=== PATIENT | male | born 1970 | race Two or more races ===

== ENCOUNTER 2020-03-04 10:41 | Outpatient (REF) | payer OTHER, SELFPAY ==
[2020-03-04 12:00] LABS: MANUAL DIFF FLAG NO
[2020-03-04 12:11] LABS: Basophils Percent Auto 0.5 % (0-2); Eosinophils Percent Auto 0.7 % (0-4); Hematocrit 43.6 % (42-52); Hemoglobin 14.7 g/dl (14.0-18.0); Imm Gran Abs Auto 0.03 X10*3/uL (0.00-0.03); Imm Gran Pct Auto 0.5 % (0.0-0.4); Lymphocytes Absolute Auto 2.1 X10*3/uL (1.2-4.9); Lymphocytes Percent Auto 37.9 % (20-40); Mean Corpuscular HGB Conc 33.7 g/dl (31.0-36.0); Mean Corpuscular Hemoglobin 32.7 pg (27.0-33.0); Mean Corpuscular Volume 97.1 fL (80-98); Mean Platelet Volume 9.4 fL (9.4-12.4); Monocytes Absolute Auto 0.5 X10*3/uL (0.1-1.2); Monocytes Percent Auto 9.5 % (2-11); Neutrophils Absolute Auto 2.9 X10*3/uL (2.0-8.3); Neutrophils Percent Auto 50.9 % (45-73); Platelet Count 323 X10*3/uL (160-400); Red Blood Count 4.49 X10*6/uL (4.60-5.80); Red Cell Distribution Width 12.1 % (11.0-16.0); White Blood Count 5.6 X10*3/uL (4.8-10.8)
[2020-03-04 12:41] LABS: Alanine Aminotransferase 24 U/L (0-40); Albumin Level 4.6 g/dL (3.5-5.0); Alkaline Phosphatase 96 U/L (39-117); Anion Gap 10 (12-20); Aspartate Amino Transferase 25 U/L (5-37); Bilirubin Total 0.4 mg/dL (0.0-1.0); Blood Urea Nitrogen 22 mg/dL (9-16); Calcium 9.8 mg/dL (8.4-10.2); Carbon Dioxide 29 mmol/L (22-29); Chloride 104 mmol/L (96-108); Estimated Glomerular Filt Rate > 60; Glucose Random 96 mg/dL (60-115); Potassium 4.7 mmol/l (3.3-5.1); Sodium 138 mmol/L (135-145); Total Protein 7.3 g/dL (6.5-8.0)
[2020-03-04 13:40] LABS: CT PCR NOT DETECTED (Not Detect.); NG PCR NOT DETECTED (Not Detect.)
[2020-03-05 05:14] LABS: Syphilis Screen Reactive (Nonreactive)
[2020-03-06 13:06] LABS: HIV RNA PCR Qn Copies <20 NOT DETECTED copies/mL (NOT DETECTED); HIV RNA PCR Qn Log Copies <1.30 NOT DETECTED (NOT DETECTED)
[2020-03-11 08:15] LABS: RPR Quantitative Reactive 1:4 (Nonreactive)
[2020-03-11 08:24] LABS: T.Pallidum Particle Agg Test Reactive (Nonreactive)
== END 2020-03-04 10:42 | disposition home or self-care (01) ==
LOC: HO.LAB 10:41
PROVIDERS: Absent Provider Internal Medicine; PCP Nurse Practitioner Primary Care; Referring Provider Nurse Practitioner Primary Care; Visit Provider Surgery
DX: K40.90 Unilateral inguinal hernia, without obstruction or gangrene, not specified as recurrent (principal); B20 Human immunodeficiency virus [HIV] disease
CPT/HCPCS: 36415; 80053; 85025; 86592; 86780; 87491; 87536; 87591

== ENCOUNTER 2020-03-20 07:58 | Day surgery (SDC) | payer OTHER, SELFPAY ==
--- NOTE | 2020-03-19 12:14 | HO.ANESPROP2 ---
Documented by User: Jolynn Gayle 03/19/20 12:16 HPI - Anesthesia Eval Consult details Narrative: 49yo M for R inguinal hernia repair PMFSH Past Medical History Medical History HIV (human immunodeficiency virus infection) Family History Family History Maternal Grandfather History of colon cancer Surgical History Surgical History History of spinal surgery (~2015) Social History Social History Alcohol intake: current Alcohol intake frequency: holidays/special occasions only Smoking Status: Former smoker Smoking Quit Date: 20 YEAR Substance Use Frequency: Daily Advance Directives: No Meds Allergies Allergy/AdvReac Type Severity Reaction Status Date / Time No Known Allergies Allergy Verified 03/04/20 11:02 Home Medications Medication Instructions Recorded Confirmed Type baclofen 10 mg tablet 20 mg PO TID 03/04/20 History bictegravir 50 mg-emtricitabine 1 tab PO DAILY 03/04/20 History 200 mg-tenofovir alafenam 25 mg tablet multivit,Ca,min-iron 8 mg-folic tab PO 03/04/20 History acid 200 mcg-lycopene 600 mcg tablet naloxone 4 mg/actuation nasal spray 4 mg INTRANASAL Q3M PRN 03/04/20 History quetiapine 100 mg tablet 100 mg PO DAILY 03/04/20 History varicella-zoster gE vac,2 of 2 50 mcg IM 03/04/20 History mcg IM suspension Exam Exam Date and Time: March 19, 2020 1214 Pertinent Lab Results Pertinent Lab Results: Laboratory Tests 03/04/20 03/04/20 11:35 11:35 WBC 5.6 Hgb 14.7 Hct 43.6 Plt Count 323 Sodium 138 Potassium 4.7 Chloride 104 BUN 22 H Creatinine 0.94 Assessment and Plan Assessment Anesthesia Assessment: Chart Reviewed Documented by User: Brittney Almanza 03/20/20 08:57 PMFSH Past Medical History Medical History HIV (human immunodeficiency virus infection) Family History Family History Maternal Grandfather History of colon cancer Surgical History Surgical History History of spinal surgery (~2016) Social History Social History Alcohol intake: current Alcohol intake frequency: holidays/special occasions only Smoking Status: Former smoker Smoking Quit Date: 20 YEAR Substance Use Frequency: Daily Advance Directives: No Meds Allergies Allergy/AdvReac Type Severity Reaction Status Date / Time No Known Allergies Allergy Verified 03/04/20 11:02 Home Medications Medication Instructions Recorded Confirmed Type baclofen 10 mg tablet 20 mg PO TID 03/04/20 History bictegravir 50 mg-emtricitabine 1 tab PO DAILY 03/04/20 History 200 mg-tenofovir alafenam 25 mg tablet multivit,Ca,min-iron 8 mg-folic tab PO 03/04/20 History acid 200 mcg-lycopene 600 mcg tablet naloxone 4 mg/actuation nasal spray 4 mg INTRANASAL Q3M PRN 03/04/20 History quetiapine 100 mg tablet 100 mg PO DAILY 03/04/20 History varicella-zoster gE vac,2 of 2 50 mcg IM 03/04/20 History mcg IM suspension Exam Airway Mallampati Class: II TM Dist: >3cm Neck ROM: Full Heart: RRR Lungs: CTA
[2020-03-20] VITALS (8 sets, daily range): BP systolic 106–123; BP diastolic 67–90; PULSE 56–74; RESP 16–20; TEMP 36.1–37; O2SAT 99–100; BMI 26.6
--- NOTE | 2020-03-20 08:58 | HO.ANESPROP2 ---
[facility] Past Medical History Medical History HIV (human immunodeficiency virus infection) Family History Family History Maternal Grandfather History of colon cancer Surgical History Surgical History History of spinal surgery (~2016) Social History Social History Alcohol intake: current Alcohol intake frequency: holidays/special occasions only Smoking Status: Former smoker Smoking Quit Date: 20 YEAR Substance Use Frequency: Daily Advance Directives: No Meds Allergies Allergy/AdvReac Type Severity Reaction Status Date / Time No Known Allergies Allergy Verified 03/04/20 11:02 Home Medications Medication Instructions Recorded Confirmed Type baclofen 10 mg tablet 20 mg PO TID 03/04/20 History bictegravir 50 mg-emtricitabine 1 tab PO DAILY 03/04/20 History 200 mg-tenofovir alafenam 25 mg tablet multivit,Ca,min-iron 8 mg-folic tab PO 03/04/20 History acid 200 mcg-lycopene 600 mcg tablet naloxone 4 mg/actuation nasal spray 4 mg INTRANASAL Q3M PRN 03/04/20 History quetiapine 100 mg tablet 100 mg PO DAILY 03/04/20 History varicella-zoster gE vac,2 of 2 50 mcg IM 03/04/20 History mcg IM suspension Exam Exam Date and Time: March 20, 2020 0858 Height,Weight and Vital Signs: Height 5 ft 9 in Weight 81.647 kg Last Vital Signs Temp 98.6 F 03/20/20 08:46 Pulse 65 03/20/20 08:46 Resp 20 03/20/20 08:46 BP 121/67 03/20/20 08:46 Pulse Ox 99 03/20/20 08:46 Assessment and Plan Assessment Anesthesia Assessment: Chart Reviewed Final Anesthetic Review NPO: Yes ASA Class: II Final Preanesthetic Review: No Changes in Pt Med Stat, Meds/Allgs Chart Reviewed and Consent Obtained/Reviewed Patient Risk: Low Procedure Risk: Low Anesthetic Plan Anesthetic Plan: GA Disposition: Standard PACU
[2020-03-20] MEDS: Lactated Ringers 1,000 ML 100 ML IVCONT (09:15)
[2020-03-20] MEDS: ceFAZolin Sodium/Dextrose,Iso 2 GM/50 ML PIGGYBACK IV (09:16)
--- NOTE | 2020-03-20 09:17 | MHC.SHP ---
Pre-Procedural Eval Section A The patient is an INPATIENT: No Changes since office visit: Yes Patient answered all questions; No Cold of Flu in the past 2 weeks, No New Medical Problems and No Changes in Medication The History & Physical has been completed within 30 days and I have reviewed it.: Yes Section B Chief Complaint: Right Inguinal hernia Allergies: Allergies Allergy/AdvReac Type Severity Reaction Status Date / Time No Known Allergies Allergy Verified 03/04/20 11:02 Plan Diagnosis/Plan: Unchanged Patient has been examined and remains a candidate for the planned procedure
--- NOTE | 2020-03-20 10:21 | PM.OP ---
Brief Operative Note Date of procedure: 03/20/20 Pre-op diagnosis: Right inguinal hernia Post-op diagnosis: same Procedure: Repair of right inguinal hernia with mesh Implants: Bard Ventralex 8 cm mesh preparitoneal and flat polyprop overlay mesh Surgeon: Tavares Judge MD Anesthesia: GLMA Flaring Machine Operator: Marci Dumont Estimated blood loss (mL): 5 Pathology: none sent Condition: stable Disposition: PACU
--- NOTE | 2020-03-20 10:30 | W.PM.OPN ---
Operative Note Operative Note Narrative: Date of procedure: 03/20/20 Pre-op diagnosis: Right inguinal hernia Post-op diagnosis: same Procedure: Repair of right inguinal hernia with mesh Indications for procedure: 49-year-old male presenting with a lump in the right groin which increases in size with Valsalva maneuvers. he reports increased pain in the right groin especially lifting and straining. Operative findings: Patient was found to have a indirect and direct inguinal hernia. This was repaired with a combination of a Ventralex 8 cm mesh placed in the preperitoneal space followed by a overlay of polypropylene mesh placed within the inguinal canal Operative details: The patient was brought to the OR and placed in a supine position. After administering general anesthesia the patient's abdomen was prepped with ChloraPrep and draped in a sterile fashion. A surgical time-out was called and the consent confirmed. Patient had received preoperative antibiotics and Venodyne boots were in place. Local anesthesia consisting of 0.75% Sensorcaine was then infiltrated just above the inguinal ligament within the skin and subcutaneous tissue. Incision was then made over the inguinal ligament with the scalpel carried out through subcutaneous tissue past Mary's fascia and up to the external oblique aponeurosis. The aponeurosis was then incised along the fibers and opened further with Metzenbaum scissors. The spermatic cord was then dissected free from the inguinal canal and retracted using a Emi drain. Fibers of the cremasteric muscle were then and a hernia sac not identified within the spermatic cord. Slightly medial to this and attached to the spermatic cord was a hernia sac separate from the cremasteric contents. This was dissected free from the cord down to the internal ring and reduced into the abdominal cavity. A separate weakness was noted in the floor of the inguinal canal suggestive of a direct hernia as well. At this point a 8 cm Ventralex mesh was obtained. This was placed into the preperitoneal space and secured to the fascial edges using interrupted 0 Polysorb sutures. It should be noted this was placed at the internal ring. An overlay mesh was then created using a flat sheet of polypropylene mesh. This was trimmed to size and secured to the pubic tubercle conjoined tendon and shelving edge of the inguinal ligament. A slit was made in the mesh to allow passage of the spermatic cord at the internal ring. This was then secured to the shelving edge of the inguinal ligament. The internal ring was allowed to past the tip of an index finger. Wounds were then irrigated with saline solution and suctioned dry. External oblique aponeurosis was then reapproximated using a running 2 0 Polysorb suture. Mary's fascia and dermis reapproximated using interrupted 3 0 Polysorb sutures. Skin was then closed using a running subcuticular 4 0 Polysorb suture. Steri-Strips 2 x 2 gauze and Tegaderm were then applied. The patient tolerated the procedure well. Sponge , instrument, and needle counts were reported as correct. The patient was transferred to PACU in stable condition. Implants: Bard Ventralex 8 cm mesh preparitoneal and flat polyprop overlay mesh Surgeon: Tavares Judge MD Anesthesia: GLMA Police Magistrate: Marci Dumont Estimated blood loss (mL): 5 Pathology: none sent Condition: stable Disposition: PACU
[2020-03-20] MEDS: Ketorolac Tromethamine 15 MG/ML VIAL IVPUSH (11:01)
[2020-03-20] MEDS: Acetaminophen 325 MG TABLET 650 MG PO (11:04)
[2020-03-20] MEDS: oxyCODONE HCl Immed Release 5 MG TABLET 10 MG PO (11:05)
--- NOTE | 2020-03-20 12:01 | HO.POSTANES ---
Post Anesthesia Evaluation Post Anesthesia Evaluation Vital Signs: Vital Signs Temp Pulse Resp BP Pulse Ox 03/20/20 11:32 97 F 56 16 118/84 100 03/20/20 11:15 60 16 123/82 99 03/20/20 11:00 63 16 112/77 99 03/20/20 10:45 63 16 114/75 100 03/20/20 10:40 63 16 109/76 100 03/20/20 10:35 66 16 113/76 99 03/20/20 10:30 97 F 74 16 106/90 H 99 03/20/20 08:46 98.6 F 65 20 121/67 99 Anesthesia: General LMA Mental Status: Awake Pain Control: Satisfactory Nausea/Vomiting: None Hydration: Adequate Anesthesia-Related Issues: No Anes. Related Issues
--- NOTE | 2020-03-20 13:10 | P.BOP_ITS ---
Brief Operative Note Date of procedure: 03/20/20 Pre-op diagnosis: Invasive lobular carcinoma left breast Post-op diagnosis: same Procedure: Left breast lumpectomy with needle localization, left sentinel node biopsy Implants: none Surgeon: Tavares Judge MD Anesthesia: GLMA Paper Roll Machine Operator: Marci Dumont Estimated blood loss (mL): 20 Pathology: other (left breast mass, sentinel nodes) Condition: stable Disposition: PACU
== END 2020-03-20 12:30 | disposition home or self-care (01) ==
PROVIDERS: Visit Provider Surgery
PROC: (CPT 49505; principal; 2020-03-20 09:30)
DX: K40.90 Unilateral inguinal hernia, without obstruction or gangrene, not specified as recurrent (principal); B20 Human immunodeficiency virus [HIV] disease; Z79.899 Other long term (current) drug therapy; Z87.891 Personal history of nicotine dependence
CPT/HCPCS: 49505; C1781; J0690; J1885; J2250; J2405; J3010

== ENCOUNTER → 2020-03-28 09:44 | Outpatient (BNVA) | payer OTHER, SELFPAY | PROVIDERS: Visit Provider Surgery | DX: Z76.89 Persons encountering health services in other specified circumstances (principal) ==

== ENCOUNTER → 2020-05-02 09:54 | Outpatient (BNVA) | payer OTHER, SELFPAY | PROVIDERS: PCP Nurse Practitioner Primary Care; Visit Provider Surgery | DX: Z76.89 Persons encountering health services in other specified circumstances (principal) ==

== ENCOUNTER → 2021-10-22 15:42 | Outpatient (BNVA) | payer OTHER, SELFPAY | PROVIDERS: PCP Nurse Practitioner Primary Care; Referring Provider Surgery; Visit Provider Surgery | DX: Z13.89 Encounter for screening for other disorder (principal) ==

== ENCOUNTER 2021-10-28 13:41 | Outpatient (REF) | payer OTHER, SELFPAY ==
--- NOTE | ~2021-10-28 | US_ITS ---
EXAMINATION: US ABDOMEN LIMITED CLINICAL INFORMATION: History of right hernia repair. COMPARISON: None TECHNIQUE: Real-time imaging of the bilateral hernias. FINDINGS: Imaging through the right groin reveals no visible hernia. There is a mesh within the right groin from previous hernia repair. There is no mass or fluid collection in the left groin. No evidence of hernia. US/US abdomen limited IMPRESSION: No evidence of hernia in either inguinal region. There is evidence of mesh in the right inguinal region from previous hernia repair.
== END 2021-10-28 13:42 | disposition home or self-care (01) ==
LOC: HO.HMGCX 13:41
PROVIDERS: PCP Nurse Practitioner Primary Care; Visit Provider Nurse Practitioner Primary Care
DX: K40.90 Unilateral inguinal hernia, without obstruction or gangrene, not specified as recurrent (principal)
CPT/HCPCS: 76705

== ENCOUNTER 2021-11-13 09:17 | Outpatient (REF) | payer OTHER, SELFPAY ==
--- NOTE | ~2021-11-13 | CT_ITS ---
EXAMINATION: CT ABDOMEN AND PELVIS WITHOUT CONTRAST CLINICAL INFORMATION: Unilateral inguinal hernia COMPARISON: Previous limited abdominal ultrasound 10/28/2021 TECHNIQUE: Multidetector volumetric imaging was performed from the superior aspect of the liver through the pubic symphysis. Sagittal and coronal reformatted images were obtained on the technologist's workstation. This CT examination was performed using dose optimization techniques as appropriate, variously including the following: *Automated exposure control *Adjustment of mA and/or kV according to patient size (this includes techniques or standardized protocols for targeted exams where dose is matched to indication/reason for exam; i.e. extremities or head) *Use of iterative reconstruction technique DLP: 458 mGy-cm FINDINGS: LUNG BASES: The visualized lung bases are unremarkable. LIVER, GALLBLADDER, AND BILIARY TREE: The liver is normal in size, shape, and attenuation. No focal hepatic lesion or biliary ductal dilatation is present. The gallbladder is unremarkable with no evidence of radiopaque gallstones, gallbladder wall thickening, or obvious pericholecystic inflammatory changes. PANCREAS: Unremarkable. SPLEEN: Unremarkable. ADRENAL GLANDS: Unremarkable. KIDNEYS AND URETERS: The kidneys are normal in size, shape, and attenuation. No hydronephrosis, hydroureter, or calculi seen. No perinephric stranding. BLADDER: Unremarkable. GASTROINTESTINAL TRACT: The small and large bowel are unremarkable. The appendix is unremarkable. ABDOMINAL WALL: There is postsurgical change in the right inguinal region. No fluid collection or right inguinal hernia is seen. There is a very small left inguinal hernia containing fat. LYMPH NODES: Normal. VASCULAR: Unremarkable. PELVIC VISCERA: Unremarkable. OSSEOUS STRUCTURES: Unremarkable. CT/CT abdomen pelvis wo con IMPRESSION: Postsurgical changes to the right inguinal region. No right inguinal hernia seen. Fleischner guidelines were followed.
[2021-11-13] MEDS: Barium Sulfate Oral (Vanilla) 450 ML ORAL.SUSP 900 ML PO (11:58)
== END 2021-11-13 09:18 | disposition home or self-care (01) ==
LOC: HO.CT 09:17
PROVIDERS: Visit Provider Surgery
DX: K40.90 Unilateral inguinal hernia, without obstruction or gangrene, not specified as recurrent (principal)
CPT/HCPCS: 74176

== ENCOUNTER 2021-12-23 05:51 | Day surgery (SDC) | payer OTHER, SELFPAY ==
[2021-12-17 15:27] VITALS: BMI 26.1
--- NOTE | 2021-12-22 08:43 | HO.ANESPROP2 ---
Documented by User: Jolynn Gayle NP 12/22/21 08:51 HPI - Anesthesia Eval Consult details Narrative: 51yo M for Left Hernia Repair Inguinal with mesh s/p R side 02/2020 with GA-LMA 5 PMFSH Active Problems Active Problems: All Active Problems (Updated 11/20/21 @ 13:03 by Tavares Judge MD) Right inguinal hernia (Acute) Left inguinal hernia (Acute) Past Medical History Medical History (Updated 11/20/21 @ 13:03 by Tavares Judge MD) HIV (human immunodeficiency virus infection) Family History Family History Maternal Grandfather History of colon cancer Surgical History Surgical History (Updated 12/17/21 @ 15:17 by Maxine Singh RN) History of spinal surgery (~2015) Hx of right inguinal hernia repair Social History Social History Are you a primary healthcare financial analyst to a significant other at home: No Do you presently have visiting nurse or other home services: No Alcohol intake: current Alcohol intake frequency: a few times a month Patient Tobacco Use Status: Former Tobacco user Quit Date: 20 yrs ago Tobacco use type: Cigarette Use of substances other than those prescribed or required for medical reasons: Yes Substance Use Frequency: Daily Have you been hit, kicked, punched, or otherwise hurt by someone within the past year? If so, by whom?: No Are you DNR?: No Advance Directives: No Advance Directives Information Provided: Yes Advance Directives on File: No Recently lost weight without trying: No Eating poorly because of decreased appetite: No Nutrition Risks: No Nutritional Risk Meds Allergies Allergy/AdvReac Type Severity Reaction Status Date / Time No Known Allergies Allergy Verified 12/17/21 15:17 Home Medications Medication Instructions Recorded Confirmed Last Taken Type baclofen 10 mg tablet 20 mg PO TID 03/04/20 12/17/21 Unknown History bictegravir 50 mg-emtricitabine 1 tab PO DAILY 03/04/20 12/17/21 Unknown History 200 mg-tenofovir alafenam 25 mg tablet multivit,Ca,min-iron 8 mg-folic tab PO 03/04/20 03/28/20 Unknown History acid 200 mcg-lycopene 600 mcg tablet (Centrum Ultra Men's) naloxone 4 mg/actuation nasal 4 mg intranasal Q3M PRN Opiate 03/04/20 12/17/21 Unknown History spray (Narcan) Reversal Exam Exam Date and Time: December 22, 2021 0843 Height,Weight and Vital Signs: Height 5 ft 10 in Weight 82.554 kg Documented by User: Farhan Juarez MD 12/23/21 07:21 [facility] Past Medical History Medical History (Updated 11/20/21 @ 13:03 by Tavares Judge MD) HIV (human immunodeficiency virus infection) Functional capacity: wheelchair bound Family History Family History Maternal Grandfather History of colon cancer Family history of problems with anesthesia: No Surgical History Surgical History (Updated 12/17/21 @ 15:17 by Maxine Singh RN) History of spinal surgery (~2015) Hx of right inguinal hernia repair History of Problems with Anesthesia: No Social History Social History Are you a primary healthcare financial analyst to a significant other at home: No Do you presently have visiting nurse or other home services: No Alcohol intake: current Alcohol intake frequency: a few times a month Patient Tobacco Use Status: Former Tobacco user Quit Date: 20 yrs ago Tobacco use type: Cigarette Use of substances other than those prescribed or required for medical reasons: Yes Substance Use Frequency: Daily Have you been hit, kicked, punched, or otherwise hurt by someone within the past year? If so, by whom?: No Are you DNR?: No Advance Directives: No Advance Directives Information Provided: Yes Advance Directives on File: No Recently lost weight without trying: No Eating poorly because of decreased appetite: No Nutrition Risks: No Nutritional Risk Meds Allergies Allergy/AdvReac Type Severity Reaction Status Date / Time No Known Allergies Allergy Verified 12/17/21 15:17 Home Medications Medication Instructions Recorded Confirmed Last Taken Type baclofen 10 mg tablet 20 mg PO TID 03/04/20 12/17/21 Unknown History bictegravir 50 mg-emtricitabine 1 tab PO DAILY 03/04/20 12/17/21 Unknown History 200 mg-tenofovir alafenam 25 mg tablet multivit,Ca,min-iron 8 mg-folic tab PO 03/04/20 03/28/20 Unknown History acid 200 mcg-lycopene 600 mcg tablet (Centrum Ultra Men's) naloxone 4 mg/actuation nasal 4 mg intranasal Q3M PRN Opiate 03/04/20 12/17/21 Unknown History spray (Narcan) Reversal Exam Airway Mallampati Class: II TM Dist: >3cm Neck ROM: Full Loose/Missing/Broken Teeth: No Heart: rrr Lungs: clear Assessment and Plan Final Anesthetic Review Family History of Problems with Anesthesia: No History of Problems with Anesthesia: No NPO: Yes ASA Class: II Final Preanesthetic Review: No Changes in Pt Med Stat, Meds/Allgs Chart Reviewed, Consent Obtained/Reviewed and Anes Risks/Benef Reviewed Patient Risk: Intermediate Procedure Risk: Low Anesthetic Plan Anesthetic Plan: GA Disposition: Standard PACU
[2021-12-23] VITALS (8 sets, daily range): BP systolic 103–124; BP diastolic 47–81; PULSE 52–72; RESP 16–18; TEMP 36.4–36.8; O2SAT 98–100
[2021-12-23] MEDS: Lactated Ringers 1,000 ML 100 ML IVCONT (06:43)
[2021-12-23 06:44] LABS: Hematocrit 42.9 % (42.0-52.0); Hemoglobin 14.6 g/dl (14.0-18.0); Mean Corpuscular Hemoglobin 32.6 pg (27.0-33.0); Mean Corpuscular Volume 95.8 fL (80.0-98.0); Mean Platelet Volume 8.8 fL (9.4-12.4); Platelet Count 285 X10*3/uL (160-400); Red Blood Count 4.48 X10*6/uL (4.60-5.80); Red Cell Distribution Width 12.7 % (11.0-16.0); White Blood Count 5.9 X10*3/uL (4.8-10.8)
[2021-12-23 06:57] LABS: Anion Gap 12 (12-20); Blood Urea Nitrogen 12 mg/dL (9-16); Calcium 9.1 mg/dL (8.4-10.2); Carbon Dioxide 26 mmol/L (22-29); Chloride 107 mmol/L (96-108); Creatinine Clr Calc Pharmacy 90.9; Estimated Glomerular Filt Rate > 60; Glucose Fasting 90 mg/dL (60-99); Potassium 4.8 mmol/L (3.3-5.1); Sodium 140 mmol/L (135-145)
--- NOTE | 2021-12-23 07:08 | P.HPSUR_ITS ---
Pre-Procedural Eval Section A Date of Service: 12/23/21 The patient is an INPATIENT: No Changes since office visit: Yes Patient answered all questions; No Cold of Flu in the past 2 weeks, No New Medical Problems and No Changes in Medication The History & Physical has been completed within 30 days and I have reviewed it.: Yes Section B Chief Complaint: hernia Details of Present Illness: New pain in left groin with lump which increases with lifting and is causing pain. He also reports some pain on the right side as well but no lump. CT confirms left inguinal hernia. Relevant Family History (Specify if Yes): No Relevant Social History: None Present Medications: see Short Stay Collaborative assessment Medical History: No relevant PMH History of Previous Operations: Relevant previous surgery/procedure and date(s) (right inguinal hernia repair) Allergies: Allergies Allergy/AdvReac Type Severity Reaction Status Date / Time No Known Allergies Allergy Verified 12/17/21 15:17 Review of Systems Sugical H&P ROS: Negative: Constitution, Cardiovascular, Respiratory, Neurological, Psychiatric, Hem-Onc, Allergic/Immunologic, Gastrointestinal, Genitourinary, Musculoskeletal, Integumentary, Endocrine and Eyes/Ears/Nose/Throat Exam Surgical H&P Exam: Normal: HEENT, Normal: Heart, Normal: Lungs, Normal: Extremi ties, Normal: Skin and Normal: Neurological and Significant Findings: Abdomen (LIH reducible) Plan Diagnosis/Plan: Unchanged I have reviewed the history and physical and performed a pertinent physical examination on my patient. No changes have occurred unless specified.
--- NOTE | 2021-12-23 08:24 | W.PM.OPN ---
Operative Note Operative Note Date of Service: 12/23/21 Narrative: Preoperative diagnosis:Left inguinal hernia Postoperative diagnosis: same Procedure: repair of left inguinal hernia with mesh Surgeon: Tavares Judge MD Outside Barrel Lathe Operator: no physician Anesthesia: general LMA Indications for procedure: 51-year-old male patient with a previous history of a right inguinal hernia now presenting with a painful lump in the left groin consistent with a left inguinal hernia. CT abdomen and pelvis confirmed a fat containing left inguinal hernia. Operative findings: Small fat containing indirect left inguinal hernia Specimen: lipoma of the cord left Estimated blood loss: 2 mL Complications: none Procedure details: patient was brought to the OR placed in a supine position. After administering general anesthesia patient's abdomen was prepped with ChloraPrep and draped in a sterile fashion. A surgical time-out was called the consent confirmed. Patient received preoperative antibiotics and Venodyne boots were placed. Local anesthesia consisting of 0.5% Sensorcaine was infiltrated over the inguinal ligament. Incision was then made with a scalpel wide and carried down past subcutaneous tissue, Mary's fashion up to the external oblique aponeurosis. Additional local was infiltrated below the external oblique aponeurosis. This was then incised with a scalpel wide with the Metzenbaum scissors. The spermatic cord was then dissected free from the surrounding Inguinal canal. This was then retracted using a Emi drain. The floor of the inguinal canal was found to be intact without a direct hernia. Fibers of the cremasteric muscle were then in a small lipoma of the cord identified. This was dissected down to the internal ring and ligated with a 0 Polysorb suture. This was excised and sent to pathology as a specimen. Attention was then directed to the floor of the inguinal canal. Fibers of the internal oblique aponeurosis and transversalis aponeurosis were then incised with electrocautery the preperitoneal space entered. This was then widened with an open Ray-Flores sponge. A large PHS mesh was then obtained. The circular underlay was deployed into the preperitoneal space and the overlay secured to the pubic tubercle, conjoined tendon, and shelving edge of the inguinal ligament using a 0 Polysorb suture. A slit was made in the mesh at the internal ring and wrapped around the spermatic cord. This was then secured to the shelving edge using the 0 Polysorb suture. After assuring adequate hemostasis wounds were irrigated with saline solution suctioned dry. External oblique aponeurosis then closed using a running 2 0 Polysorb suture. 4.5 mL of Zenrelef was then infiltrated over the mesh. Additional 4 mL was infiltrated over the external oblique aponeurosis. Mary's fascia was then reapproximated interrupted 3-0 Polysorb sutures. Dermis was reapproximated using interrupted 3-0 Polysorb sutures. Skin was closed using a running subcuticular 4-0 Polysorb suture. Steri-Strips, 2 x 2 gauze and Tegaderm were then applied. The patient tolerated the procedure well. Sponge, instrument, and needle counts reported as correct. The patient was transferred to PACU in stable condition.
== END 2021-12-23 10:17 | disposition home or self-care (01) ==
PROVIDERS: Nurse Practitioner; Visit Provider Surgery
PROC: (CPT 49505; principal; 2021-12-23 07:30)
DX: K40.90 Unilateral inguinal hernia, without obstruction or gangrene, not specified as recurrent (principal); D17.6 Benign lipomatous neoplasm of spermatic cord; B20 Human immunodeficiency virus [HIV] disease; Z79.899 Other long term (current) drug therapy; Z98.890 Other specified postprocedural states
CPT/HCPCS: 49505; 36415; 80048; 85027; 88304; C1781; C9088; J0690; J1100; J2250; J2405; J2795; J3010

== ENCOUNTER 2023-01-28 17:57 | Outpatient (REF) | payer OTHER, SELFPAY | END 2023-01-28 17:58 | disposition home or self-care (01) | LOC: HO.LNP 17:57 | PROVIDERS: Visit Provider Emergency Medicine | DX: U07.1 COVID-19 (principal) | CPT/HCPCS: 87070 ==

== ENCOUNTER 2023-07-21 13:43 | Outpatient (REF) | payer OTHER, SELFPAY ==
--- NOTE | ~2023-07-21 | CT_ITS ---
EXAMINATION: CT ABDOMEN AND PELVIS WITH CONTRAST CLINICAL INFORMATION: Right inguinal pain; history of prior herniorrhaphy. COMPARISON: CT abdomen and pelvis dated 11/13/2021; abdominal ultrasound dated 10/28/2021. TECHNIQUE: Multidetector volumetric images were obtained from the superior aspect of the liver through the pubic symphysis following administration 85 mL of Omnipaque 350 intravenous contrast. Sagittal and coronal reformatted images were obtained on the technologist's workstation. Oral contrast: No This CT examination was performed using dose optimization techniques as appropriate, variously including the following: *Automated exposure control *Adjustment of mA and/or kV according to patient size (this includes techniques or standardized protocols for targeted exams where dose is matched to indication/reason for exam; i.e. extremities or head) *Use of iterative reconstruction technique DLP: 512 mGy-cm FINDINGS: LUNG BASES: The visualized lung bases are unremarkable. LIVER, GALLBLADDER, AND BILIARY TREE: The liver is normal in size, shape, and attenuation. No focal hepatic lesion or biliary ductal dilatation is present. The gallbladder is unremarkable with no evidence of radiopaque gallstones, gallbladder wall thickening, or obvious pericholecystic inflammatory changes. PANCREAS: Unremarkable. SPLEEN: Unremarkable. ADRENAL GLANDS: Unremarkable. KIDNEYS AND URETERS: The kidneys are normal in size, shape, and attenuation. No hydronephrosis, hydroureter, or calculi seen. No perinephric stranding. At the upper pole of the left kidney posteriorly (3:35), an 8 mm benign, simple cyst is seen. This is somewhat small for full characterization with CT and requires no imaging follow-up. BLADDER: Unremarkable. GASTROINTESTINAL TRACT: There is a large colonic stool burden. No obstruction, free intraperitoneal air or abscess is seen. There is no focal bowel wall thickening. The vermiform appendix is unremarkable. ABDOMINAL WALL: There are very small fat-containing umbilical and left inguinal hernias. LYMPH NODES: Normal. VASCULAR: Unremarkable. PELVIC VISCERA: The prostate and seminal vesicles are unremarkable. OSSEOUS STRUCTURES: There is mild to moderate degenerative disc disease at L5-S1, with vacuum disc phenomenon. There is multi-level moderate to severe lower thoracic endplate arthropathy. No acute or aggressive osseous finding is noted. CT/CT abdomen pelvis w IV con IMPRESSION: 1. There is a large colonic stool burden, suggesting possible constipation. No obstruction, free intraperitoneal air or abscess is seen. There is no appendicitis or diverticulitis. 2. No right inguinal hernia defect, mass, lymphadenopathy or fluid collection is seen. There are very small fat-containing umbilical and left inguinal hernias. 3. There is degenerative disc disease at L5-S1. Fleischner guidelines were followed.
[2023-07-21] MEDS: Barium Sulfate Oral (Berry) 450 ML ORAL.SUSP 900 ML PO (16:08)
[2023-07-21] MEDS: iohexoL 350 MG/ML 100 ML INFUS..BTL 85 ML IV (16:19)
[2023-07-22 07:21] LABS: Creatinine POC 0.7 mg/dL (0.5-1.4); GFR POC > 60
== END 2023-07-21 13:44 | disposition home or self-care (01) ==
LOC: HO.CT 13:43
PROVIDERS: PCP Nurse Practitioner Primary Care; Visit Provider Surgery
DX: K40.90 Unilateral inguinal hernia, without obstruction or gangrene, not specified as recurrent (principal)
CPT/HCPCS: 74177; 82565; Q9967

== ENCOUNTER 2023-07-28 14:50 | Outpatient (AMB) | payer OTHER, SELFPAY ==
--- NOTE | 2023-07-28 14:56 | A.OFFVIS_ITS ---
Intake Vital Signs 07/28/23 15:08 Height 5 ft 10 in Weight 194 lb 8 oz BMI 27.9 BP 169/104 H Blood Pressure Location Lt brachial Position Sitting Pulse 92 Intake Visit Reasons: RIH, Ct-Scan results Intake Note: Patient is seen in office for CT scan results, following right inguinal hernia. 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 A fat containing small umbilical and left inguinal hernia was revealed however no recurrent hernia noted in the right side. Review of the CT revealed postoperative changes bilaterally with no definite hernia to my review. He denies any symptoms at the umbilical hernia site. He continues to have pain in bilateral groins. [facility] Medical History HIV (human immunodeficiency virus infection) Surgical History History of left inguinal hernia repair (12/23/21) Hx of right inguinal hernia repair History of spinal surgery (~2015) Family History Maternal Grandfather History of colon cancer Social History Are you a primary child care education coordinator to a significant other at home: No Do you presently have visiting nurse or other home services: No Alcohol intake: current Alcohol intake frequency: a few times a month Patient Tobacco Use Status: Former Tobacco user Quit Date: 20 yrs ago Tobacco use type: Cigarette Review of Systems Const All systems reviewed & are unremarkable except as noted in HPI and below Physical Exam Vital Signs: Last Vital Signs Pulse 92 07/28/23 15:08 BP 169/104 H 07/28/23 15:08 BMI result Body Mass Index 27.9 Const General: healthy appearing and no acute distress Nutritional Appearance: well nourished Orientation/consciousness: patient oriented x3 Limitations: no limitations Resp Effort & Inspection: normal respiratory effort GI Other: Exam deferred Neuro General: patient oriented x3 Assessment & Plan Assessment & Plan (1) Bilateral groin pain: Code(s): R10.31 - Right lower quadrant pain; R10.32 - Left lower quadrant pain Plan 52-year-old male patient who continues to have bilateral groin pain with no definite recurrent hernia. Postoperative changes are noted on the CT with no definite recurrent hernia. Previous examination also was negative for current hernias. I recommended evaluation by pain management clinic to see if there are other options pain relief. He expressed understanding and agrees with the plan. Orders: Referrals Pain Management Referral R10.31 - Right lower quadrant pain, R10.32 - Left lower quadrant pain Coding Level of Care Code Est Pt Level 3 (81594) Diagnoses Bilateral groin pain R10.31; R10.32
[2023-07-28 15:08] VITALS: BP 169/104; PULSE 92; BMI 27.9
== END 2023-07-28 15:23 | disposition home or self-care (01) ==
PROVIDERS: PCP Nurse Practitioner Primary Care; Visit Provider Surgery
DX: R10.31 Right lower quadrant pain (principal); R10.32 Left lower quadrant pain
CPT/HCPCS: 99213

== ENCOUNTER → 2023-07-28 14:50 | Outpatient (BNVA) | payer OTHER, SELFPAY | PROVIDERS: PCP Nurse Practitioner Primary Care; Visit Provider Surgery ==

== ENCOUNTER 2023-08-15 15:58 | Outpatient (REF) | payer OTHER, SELFPAY ==
[2023-08-15 17:34] LABS: MANUAL DIFF FLAG NO
[2023-08-15 17:51] LABS: Basophils Absolute Auto 0.1 X10*3/uL (0.0-0.2); Basophils Percent Auto 0.7 % (0-2); Eosinophils Absolute Auto 0.1 X10*3/uL (0.0-0.4); Eosinophils Percent Auto 1.9 % (0-4); Hematocrit 43.6 % (42.0-52.0); Imm Gran Abs Auto 0.05 X10*3/uL (0.00-0.03); Imm Gran Pct Auto 0.7 % (0.0-0.4); Lymphocytes Absolute Auto 3.1 X10*3/uL (1.2-4.9); Lymphocytes Percent Auto 42.1 % (20-40); Mean Corpuscular HGB Conc 34.4 g/dl (31.0-36.0); Mean Platelet Volume 9.1 fL (9.4-12.4); Monocytes Absolute Auto 0.7 X10*3/uL (0.1-1.2); Monocytes Percent Auto 8.7 % (2-11); Neutrophils Absolute Auto 3.4 x10*3/uL (2.0-8.3); Neutrophils Percent Auto 45.9 % (45-73); Platelet Count 328 X10*3/uL (160-400); Red Blood Count 4.54 X10*6/uL (4.60-5.80); Red Cell Distribution Width 12.4 % (11.0-16.0); White Blood Count 7.5 X10*3/uL (4.8-10.8)
[2023-08-15 18:07] LABS: Alanine Aminotransferase 36 U/L (0-40); Albumin Level 4.4 g/dL (3.5-5.0); Alkaline Phosphatase 93 U/L (39-117); Anion Gap 11 (12-20); Aspartate Amino Transferase 37 U/L (5-37); Bilirubin Total 0.5 mg/dL (0.0-1.0); Blood Urea Nitrogen 21 mg/dL (9-16); Calcium 9.8 mg/dL (8.4-10.2); Carbon Dioxide 27 mmol/L (22-29); Chloride 103 mmol/L (96-108); Cholesterol 176 mg/dL (<200); Estimated Glomerular Filt Rate > 60; Glucose Random 90 mg/dL (60-115); HDL Cholesterol 42 mg/dL (>40); LDL Cholesterol Calculated 111 mg/dL (<100); Sodium 137 mmol/L (135-145); Total Protein 7.4 g/dL (6.5-8.0); Triglycerides 118 mg/dL (<150)
[2023-08-15 18:22] LABS: Reflex LDLD? No
[2023-08-16 12:43] LABS: RPR Rapid Plasma Reagin REACTIVE (NON-REACTIVE)
[2023-08-17 10:38] LABS: Absolute CD3 Count 2174 cells/uL (840-3060); Absolute CD4 Count 1519 cells/uL (490-1740); Absolute CD8 Count 660 cells/uL (180-1170); Absolute Lymphocytes 3415 cells/uL (850-3900); Percent CD3 Cells 64 % (57-85); Percent CD4 Cells 44 % (30-61); Percent CD8 Cells 19 % (12-42)
[2023-08-17 16:54] LABS: HIV RNA PCR Qn Copies 145 copies/mL (NOT DETECTED); HIV RNA PCR Qn Log Copies 2.16 (NOT DETECTED)
== END 2023-08-15 15:59 | disposition home or self-care (01) ==
LOC: HO.HHCL 15:58
PROVIDERS: Visit Provider Internal Medicine
DX: Z13.6 Encounter for screening for cardiovascular disorders (principal); B20 Human immunodeficiency virus [HIV] disease
CPT/HCPCS: 36415; 80053; 80061; 85025; 86359; 86360; 86592; 86593; 87536

== ENCOUNTER 2023-08-22 13:19 | Outpatient (AMB) | payer OTHER, SELFPAY ==
--- NOTE | 2023-08-22 13:21 | MHC.OFFVIS ---
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 He was referred to us by Dr. Judge, General Surgery services for chronic bilateral groin pain. Patient reports his groin pain has been minimal and recent CT scan findings showed no recurrent hernias. 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 Denies any recent trauma, injury or falls. Pain affects his daily functioning, work, sleep and social interactions. Back pain is axial and also radiates into both legs laterally with chronic numbness and tingling in both feet without specific dermatome. Patient states he has been Vegetarian for many years and is interested to undergo lab work to rule out causes for peripheral neuropathy in both feet. SLR testing is negative today. Despite pain, patient continues to stay physically active through home exercise program but is interested to pursue skilled PT. Denies any fever, chills, malaise, weakness, foot drop, bladder or bowel dysfunction or saddle anesthesia. Recent abdomen/pelvis CT scan showed degenerative disc disease at L5-S1, with vacuum disc phenomenon and multi-level moderate to severe lower thoracic endplate arthropathy. Reports previous therapeutic cervical injections, including trigger point injections with good results. Denies previous lumbar spine surgery or injections. Location Lower back pain, bilateral leg and feet; minimal bilateral groin pain Duration Chronic pain for >4 years Characteristics of symptom or complaint Intermittent aching, burning, tingling, stabbing Aggravating or associated factors Movements, running, cold weather changes Relieving factors Compression belt, Oxycodone 5mg BID, Ibuprofen Treatment Indoor bike, home gym, Yoga, running 5-6 miles every am, stretching [facility] Medical History (Updated 08/22/23 @ 13:53 by VÍCTOR Caballero) Nocturia Cervical radiculopathy HIV (human immunodeficiency virus infection) Surgical History History of left inguinal hernia repair (12/23/21) Hx of right inguinal hernia repair History of spinal surgery (~2015) Family History Maternal Grandfather History of colon cancer Social History Are you a primary critical care physician to a significant other at home: No Do you presently have visiting nurse or other home services: No Alcohol intake: current Alcohol intake frequency: a few times a month Patient Tobacco Use Status: Former Tobacco user Quit Date: 20 yrs ago Tobacco use type: Cigarette Review of Systems Const All systems reviewed & are unremarkable except as noted in HPI and below Physical Exam Vital Signs: Last Vital Signs Pulse 78 08/22/23 13:27 BP 136/86 08/22/23 13:27 Pulse Ox 100 08/22/23 13:27 Oxygen Delivery Method Room Air 08/22/23 13:27 BMI result Body Mass Index 25.8 General: Appears afebrile. Alert and oriented. Mood and affect appropriate. Follows and participates in conversation appropriately. Respiratory effort is unlabored. No cough. Able to transition from sit to stand unassisted. Ambulates with bilaterally normal heel strike and toe off. General: Yes no CVA tenderness Back/Spine/Pelvis Other: Patient is able to walk and stand on heels and tip toes with no difficulties demonstrating good motor tone. No limping. Can flex forward to 80-85 degrees and extend to 5-10 degrees before experiencing lumbar pain. worse pain with extension. Mild midline tenderness in lower thoracic/upper lumbar spine. Demonstrates 5/5 strength of quadriceps bilaterally as well as flexion/dorsiflexion of bilateral feet against resistance. 2+ pedal pulses bilaterally. Seated straight leg rise with dorsiflexion negative bilaterally. +2 patellar and achilles reflexes bilaterally. Facet loading test positive bilaterally. Romero?s, Pelvic compression and Stinchfield tests are negative bilaterally. No groin pain with I/E hip rotations. Valsalva maneuver negative. Back: no CVA tenderness Cervical Spine: cervical ROM normal, cervical muscular tenderness, Cervical spine scars present (posterior) and No Cervical spine tenderness Thoracic/Lumbar Spine: thoracic and lumbar spine normal to inspection, No Thoracic/lumbar spine scar(s), No Lasegue's sign negative, No straight leg raise negative bilaterally, pain with thoraco-lumbar ROM, No paraspinal muscle tenderness, thoracic spinal tenderness and lumbar spinal tenderness Pelvis: no buttock tenderness and no sciatic notch tenderness Sacroiliac joints: bilaterally nontender Extrem General: Yes capillary refill normal, Yes no clubbing, cyanosis or edema and Yes no calf tenderness Results Reviewed Results Reviewed: CT/CT abdomen pelvis w IV con 07/21/23 OSSEOUS STRUCTURES: There is mild to moderate degenerative disc disease at L5-S1, with vacuum disc phenomenon. There is multi-level moderate to severe lower thoracic endplate arthropathy. No acute or aggressive osseous finding is noted. IMPRESSION: 1. There is a large colonic stool burden, suggesting possible constipation. No obstruction, free intraperitoneal air or abscess is seen. There is no appendicitis or diverticulitis. 2. No right inguinal hernia defect, mass, lymphadenopathy or fluid collection is seen. There are very small fat-containing umbilical and left inguinal hernias. 3. There is degenerative disc disease at L5-S1. Assessment & Plan Assessment & Plan (1) Other spondylosis, thoracolumbar region: Code(s): M47.895 - Other spondylosis, thoracolumbar region (2) Lower back pain: Code(s): M54.50 - Low back pain, unspecified (3) Lumbar radiculopathy: Code(s): M54.16 - Radiculopathy, lumbar region (4) Thoracic degenerative disc disease: Code(s): M51.34 - Other intervertebral disc degeneration, thoracic region (5) Peripheral neuropathy: Code(s): G62.9 - Polyneuropathy, unspecified Plan Lumbar and thoracic spine imaging to assess degree of degenerative changes, any subluxation, listhesis, compression fractures or pars defects. Briefly discussed interventional treatments for low back pain with degenerative disc disease at L5-S1 findings per recent CT scan. Informational pamphlets provided to patient. Recommend formal course of formal PT for lower back pain with axial, radicular and discogenic pain components. Script provided. Will check Vitamin B12, folate and magnesium levels to rule out deficiency causes for peripheral neuropathy. If normal lab results, will proceed with Neurodiagnostic studies to rule out distal symmetric polyneuropathy vs lumbar radiculopathy. SLR testing was negative today. All questions and concerns have been answered and patient agreed with the plan. Follow up for xray/lab results and sooner as needed. Orders: Orders Vitamin B12 and Folate Today G62.9 - Polyneuropathy, unspecified PT Evaluation and Treatment Today M47.895 - Other spondylosis, thoracolumbar region, M51.34 - Other intervertebral disc degeneration, thoracic region, M54.16 - Radiculopathy, lumbar region, M54.50 - Low back pain, unspecified XR lumbar spine 4V min Today M47.895 - Other spondylosis, thoracolumbar region, M51.34 - Other intervertebral disc degeneration, thoracic region, M54.16 - Radiculopathy, lumbar region, M54.50 - Low back pain, unspecified XR thoracic spine 3V Today M47.895 - Other spondylosis, thoracolumbar region, M51.34 - Other intervertebral disc degeneration, thoracic region, M54.16 - Radiculopathy, lumbar region, M54.50 - Low back pain, unspecified Magnesium Today G62.9 - Polyneuropathy, unspecified Coding Level of Care Code New Pt Level 4 (21034) Diagnoses Other spondylosis, thoracolumbar region M47.895 Lower back pain M54.50 Lumbar radiculopathy M54.16 Thoracic degenerative disc disease M51.34 Peripheral neuropathy G62.9
[2023-08-22 13:27] VITALS: BP 136/86; PULSE 78; O2SAT 100; BMI 25.8
== END 2023-08-22 14:06 | disposition home or self-care (01) ==
PROVIDERS: PCP Nurse Practitioner Primary Care; Referring Provider Surgery; Visit Provider Nurse Practitioner Family
DX: M47.895 Other spondylosis, thoracolumbar region (principal); M54.50 Low back pain, unspecified; M54.16 Radiculopathy, lumbar region; M51.34 Other intervertebral disc degeneration, thoracic region; G62.9 Polyneuropathy, unspecified
CPT/HCPCS: 99204

== ENCOUNTER → 2023-08-22 13:19 | Outpatient (BNVA) | payer OTHER, SELFPAY | PROVIDERS: PCP Nurse Practitioner Primary Care; Referring Provider Surgery; Visit Provider Nurse Practitioner Family ==

== ENCOUNTER 2023-08-23 08:35 | Outpatient (REF) | payer OTHER, SELFPAY ==
--- NOTE | ~2023-08-23 | XR_ITS ---
EXAMINATION: XR THORACIC SPINE CLINICAL INFORMATION: Other intervertebral disc degeneration, thoracic region COMPARISON: Same-day lumbar spine TECHNIQUE: 3 views of the thoracic spine were obtained. FINDINGS: There is no fracture or bone destruction seen and the vertebral alignment is normal. There is multilevel disc space narrowing space narrowing. There is no abnormality of the paraspinal soft tissues. Surgical hardware is seen in the cervical spine. XR/XR thoracic spine 3V IMPRESSION: Multilevel degenerative disc disease.
--- NOTE | ~2023-08-23 | XR_ITS ---
EXAMINATION: XR LUMBOSACRAL SPINE WITH OBLIQUES CLINICAL INFORMATION: Other spondylosis, thoracolumbar region COMPARISON: None available. TECHNIQUE: AP, both oblique, and lateral views of the lumbar spine. Lateral view of the lumbosacral junction. FINDINGS: The vertebral bodies and posterior elements are normal. The disc spaces are preserved. There is straightening of the usual lumbar lordosis consistent with muscle spasm. No spondylolisthesis. Dense content within the stomach and less so within the colon. XR/XR lumbar spine 4V min IMPRESSION: Muscle spasm.
== END 2023-08-23 08:36 | disposition home or self-care (01) ==
LOC: HO.HHCX 08:35
PROVIDERS: Visit Provider Nurse Practitioner Family
DX: M47.895 Other spondylosis, thoracolumbar region (principal); M54.50 Low back pain, unspecified; M51.34 Other intervertebral disc degeneration, thoracic region; M54.16 Radiculopathy, lumbar region
CPT/HCPCS: 72072; 72110

== ENCOUNTER 2023-08-23 09:34 | Outpatient (REF) | payer OTHER, SELFPAY ==
[2023-08-23 13:26] LABS: Magnesium 2.3 mg/dL (1.6-2.6)
[2023-08-23 14:02] LABS: Folate 18.8 ng/mL (> or = 4.0); Vitamin B12 732 pg/mL (200-900)
== END 2023-08-23 09:35 | disposition home or self-care (01) ==
LOC: HO.HHCL 09:34
PROVIDERS: Visit Provider Nurse Practitioner Family
DX: G62.9 Polyneuropathy, unspecified (principal)
CPT/HCPCS: 36415; 82607; 82746; 83735

== ENCOUNTER 2023-09-16 14:12 | Outpatient (REF) | payer OTHER, SELFPAY ==
--- NOTE | 2023-09-16 14:14 | EMG_ITS ---
Chief complaint: At least 1 year of numbness from his knee to foot, right worse than left. Has had episodes of right groin pain earlier this year. And back pain. Reason for referral: Evaluate for neuropathy versus radiculopathy Referred by: Jeannine Palafox NP Procedure done: Bilateral lower extremity NCS/EMG Precautions and/or limitations: None The limb temperature was monitored continuously and remained between 32-36 degrees C during the performance of the NCS. FINDINGS: Right sural nerve showed normal peak latency but small amplitude. Left sural showed normal amplitude. Right superficial peroneal nerve showed absent response. Left superficial peroneal nerve was within normal. All other nerves tested were within normal. Concentric needle EMG was performed in selected muscles of the bilateral lower extremities and lumbar paraspinals. Study revealed signs of electric abnormalities as shown in the table below. Right TA, AH and short head of biceps femoris showed increased insertional activity and small PSWs. No denervation seen on lumbar paraspinals Nerve Conduction Studies Anti Sensory Summary Table ?Stim Site NR Onset (ms) Norm Onset (ms) Peak (ms) Norm Peak (ms) O-P Amp (?V) Norm O-P Amp Site1 Site2 Delta-0 (ms) Dist (cm) Dave (m/s) Norm Dave (m/s) Left Sup Peron Anti Sensory (Ankle) Lateral Leg ? 2.1 2.8 <4.4 7.2 >5.0 Lateral Leg Ankle 2.1 14.0 67 Right Sup Peron Anti Sensory (Ankle) Lateral Leg NR <4.4 >5.0 Lateral Leg Ankle 14.0 Left Sural Anti Sensory (Lat Mall) Calf ? 2.9 3.5 <4.0 9.0 >5.0 Calf Lat Mall 2.9 14.0 48 Right Sural Anti Sensory (Lat Mall) Calf ? 2.7 3.4 <4.0 2.5 >5.0 Calf Lat Mall 2.7 14.0 52 Motor Summary Table ?Stim Site NR Onset (ms) Norm Onset (ms) O-P Amp (mV) Norm O-P Amp iAmp (mV) Amp (1st) (%) Site1 Site2 Delta-0 (ms) Dist (cm) Dave (m/s) Norm Dave (m/s) Left Peroneal Motor (Ext Dig Brev) Ankle ? 3.8 <4.0 8.6 >2.5 10.6 100.0 Ankle Ext Dig Brev 3.8 0.0 B Fib ? 13.4 5.8 6.7 67.4 B Fib Ankle 9.6 41.0 43 >40 Right Peroneal Motor (Ext Dig Brev) Ankle ? 3.8 <4.0 9.4 >2.5 11.6 100.0 Ankle Ext Dig Brev 3.8 0.0 B Fib ? 10.7 7.8 9.8 83.0 B Fib Ankle 6.9 34.0 49 >40 Poplt ? 11.4 7.7 9.9 81.9 Poplt B Fib 0.7 6.0 86 >40 Right Tibial Motor (Abd Pretty Brev) Ankle ? 3.5 <5 11.3 >2.5 15.4 100.0 Ankle Abd Pretty Brev 3.5 0.0 Knee ? 12.3 5.5 6.9 48.7 Knee Ankle 8.8 43.0 49 >40 EMG ?Side Muscle Nerve Root Ins Act Fibs Psw Amp Dur Poly Recrt Int Pat Comment Right AbdHallucis MedPlantar S1-2 Incr Nml 1+ Nml Nml 0 Nml Complete Right AntTibialis Dp Br Peron L4-5 Incr Nml 1+ Nml Nml 0 Nml Complete Right PostTibialis Tibial L5, S1 Nml Nml Nml Nml Nml 0 Nml Complete Right MedGastroc Tibial S1-2 Nml Nml Nml Nml Nml 0 Nml Complete Right VastusMed Femoral L2-4 Nml Nml Nml Nml Nml 0 Nml Complete Right BicepsFemS Sciatic L5-S1 Incr Nml 1+ Nml Nml 0 Nml Complete Left AbdHallucis MedPlantar S1-2 Nml Nml Nml Nml Nml 0 Nml Complete Left AntTibialis Dp Br Peron L4-5 Nml Nml Nml Nml Nml 0 Nml Complete Left PostTibialis Tibial L5, S1 Nml Nml Nml Nml Nml 0 Nml Complete Left MedGastroc Tibial S1-2 Nml Nml Nml Nml Nml 0 Nml Complete Left VastusMed Femoral L2-4 Nml Nml Nml Nml Nml 0 Nml Complete Paraspinal EMG ?Side Muscle Nerve Root Ins Act Fibs Psw Comment Right Lumbar Upper Rami Nml Nml Nml Right Lumbar Mid Rami Nml Nml Nml Right Lumbar Lower Rami Nml Nml Nml Left Lumbar Upper Rami Nml Nml Nml Left Lumbar Mid Rami Nml Nml Nml Left Lumbar Lower Rami Nml Nml Nml IMPRESSION: 1. This is an abnormal study. 2. 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 3. There is no electrodiagnostic evidence for peroneal neuropathy, tibial neuropathy, lumbar radiculopathy or peripheral neuropathy. CLINICAL COMMENT: Given normal CMAPs, findings above are more consistent with sciatic neuropathy/plexopathy rather than radiculopathy. Further clinical correlation recommended. Thank you for your kind referral. Kaylie Govea MD, VERONICA Board Certified, [place] [employer] and [employer] (ABPMR) Board Certified, [place] Board of Electrodiagnostic Medicine (ABEM) CODIN 90841 x 2 MTDD
== END 2023-09-16 14:13 | disposition home or self-care (01) ==
LOC: HO.NEURO 14:12
PROVIDERS: PCP Nurse Practitioner Primary Care; Visit Provider Nurse Practitioner Family
DX: R20.0 Anesthesia of skin (principal); G62.9 Polyneuropathy, unspecified; B20 Human immunodeficiency virus [HIV] disease
CPT/HCPCS: 95886; 95910

== ENCOUNTER → 2023-09-16 14:14 | Outpatient (BNV) | payer OTHER, SELFPAY | PROVIDERS: PCP Nurse Practitioner Primary Care; Visit Provider Physical Medicine & Rehabilitation | DX: M54.31 Sciatica, right side (principal); M79.605 Pain in left leg | CPT/HCPCS: 95886; 95910 ==

== ENCOUNTER 2023-10-04 13:14 | Outpatient (AMB) | payer OTHER, SELFPAY ==
--- NOTE | 2023-10-04 13:15 | A.OFFVIS_ITS ---
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 Patient continues to endorse significant low back pain with bilateral radicular symptoms, worse on the right. He also reports neuropathy sensation in his upper extremities. Denies any bladder or bowel dysfunction or saddle anesthesia. Denies any recent cough, cold, infection, fever, any significant changes in her medical history, medications or recent hospitalizations. RIOR: Patient is a 52 years old male with prior history of cervical disc herniation s/p cervical surgery [place] [facility] [place] and bilateral inguina hernia repairs in 2019 and 2021, opioid induced constipation, presents today for initial evaluation of chronic low back pain. He was referred to us by Dr. Judge, General Surgery services for chronic bilateral groin pain. Patient reports his groin pain has been minimal and recent CT scan findings showed no recurrent hernias. 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 Denies any recent trauma, injury or falls. Pain affects his daily functioning, work, sleep and social interactions. Back pain is axial and also radiates into both legs laterally with chronic numbness and tingling in both feet without specific dermatome. Patient states he has been Vegetarian for many years and is interested to undergo lab work to rule out causes for peripheral neuropathy in both feet. SLR testing is negative today. Despite pain, patient continues to stay physically active through home exercise program but is interested to pursue skilled PT. Denies any fever, chills, malaise, weakness, foot drop, bladder or bowel dysfunction or saddle anesthesia. Recent abdomen/pelvis CT scan showed degenerative disc disease at L5-S1, with vacuum disc phenomenon and multi-level moderate to severe lower thoracic endplate arthropathy. Reports previous therapeutic cervical injections, including trigger point injections with good results. Denies previous lumbar spine surgery or injections. Location Lower back pain, bilateral leg and feet; minimal bilateral groin pain Duration Chronic pain for >4 years Characteristics of symptom or complaint Intermittent aching, burning, tingling, stabbing Aggravating or associated factors Movements, running, cold weather changes Relieving factors Compression belt, Oxycodone 5mg BID, Ibuprofen Treatment Indoor bike, home gym, Yoga, running 5-6 miles every am, stretching [facility] Medical History Nocturia Cervical radiculopathy HIV (human immunodeficiency virus infection) Surgical History History of left inguinal hernia repair (12/23/21) Hx of right inguinal hernia repair History of spinal surgery (~2015) Family History Maternal Grandfather History of colon cancer Social History Are you a primary tire care manager to a significant other at home: No Do you presently have visiting nurse or other home services: No Alcohol intake: current Alcohol intake frequency: a few times a month Patient Tobacco Use Status: Former Tobacco user Quit Date: 20 yrs ago Tobacco use type: Cigarette Review of Systems Const All systems reviewed & are unremarkable except as noted in HPI and below Physical Exam General: Appears afebrile. Alert and oriented. Mood and affect appropriate. Follows and participates in conversation appropriately. Respiratory effort is unlabored. No cough. Able to transition from sit to stand unassisted. Ambulates with bilaterally normal heel strike and toe off. General: Yes no CVA tenderness Back/Spine/Pelvis Other: Patient is able to walk and stand on heels and tip toes with no difficulties demonstrating good motor tone. No limping. Can flex forward to 80-90 degrees and extend to 5-10 degrees before experiencing lumbar pain. worse pain with extension. Mild midline tenderness in lower thoracic/upper lumbar spine. Demonstrates 5/5 strength of quadriceps bilaterally as well as flexion/dorsiflexion of bilateral feet against resistance. 2+ pedal pulses bilaterally. Seated straight leg rise with dorsiflexion negative bilaterally. +2 patellar and +1 achilles reflexes bilaterally. Facet loading test positive bilaterally. Romero?s, Pelvic compression and Stinchfield tests are negative bilaterally. No groin pain with I/E hip rotations. Valsalva maneuver negative. Back: no CVA tenderness Cervical Spine: cervical ROM normal, cervical muscular tenderness, Cervical spine scars present (posterior) and No Cervical spine tenderness Thoracic/Lumbar Spine: thoracic and lumbar spine normal to inspection, No Thoracic/lumbar spine scar(s), No Lasegue's sign negative, No straight leg raise negative bilaterally, pain with thoraco-lumbar ROM, paraspinal muscle tenderness on the right greater than left, thoracic spinal tenderness and lumbar spinal tenderness Pelvis: buttock tenderness bilaterally and sciatic notch tenderness on the right Sacroiliac joints: bilaterally nontender Extrem General: Yes capillary refill normal, Yes no clubbing, cyanosis or edema and Yes no calf tenderness Results Reviewed Results Reviewed: CT/CT abdomen pelvis w IV con 07/21/23 OSSEOUS STRUCTURES: There is mild to moderate degenerative disc disease at L5-S1, with vacuum disc phenomenon. There is multi-level moderate to severe lower thoracic endplate arthropathy. No acute or aggressive osseous finding is noted. IMPRESSION: 1. There is a large colonic stool burden, suggesting possible constipation. No obstruction, free intraperitoneal air or abscess is seen. There is no appendicitis or diverticulitis. 2. No right inguinal hernia defect, mass, lymphadenopathy or fluid collection is seen. There are very small fat-containing umbilical and left inguinal hernias. 3. There is degenerative disc disease at L5-S1. EMG and NVC study 09/16/23 IMPRESSION: 1. This is an abnormal study. 2. 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 3. There is no electrodiagnostic evidence for peroneal neuropathy, tibial neuropathy, lumbar radiculopathy or peripheral neuropathy. CLINICAL COMMENT: Given normal CMAPs, findings above are more consistent with sciatic neuropathy/plexopathy rather than radiculopathy. Assessment & Plan Assessment & Plan (1) Other spondylosis, thoracolumbar region: Code(s): M47.895 - Other spondylosis, thoracolumbar region Category: Medical (2) Lumbar radiculopathy: Code(s): M54.16 - Radiculopathy, lumbar region Category: Medical (3) Neuropathy of right sciatic nerve: Code(s): G57.01 - Lesion of sciatic nerve, right lower limb Category: Medical (4) Thoracic degenerative disc disease: Code(s): M51.34 - Other intervertebral disc degeneration, thoracic region Category: Medical (5) Lower back pain: Code(s): M54.50 - Low back pain, unspecified Category: Medical Plan EMG and NVC study results were discussed with patient today. We will proceed with lumbar spine MRI to assess L5-S1 and other levels for persistent low back pain with discogenic and radicular pain components and assess for neural integrity and compression. Script provided for gabapentin 300 mg TID, patient advised to start 300 mg at bedtime for 1 week, if well tolerated titrate up to BID for 2nd and TID thereafter. Side effects and precautions reviewed with patient. Patient reports he used to take gabapentin in the past prior to his neck surgery in 2016 with good tolerance. All questions and concerns have been answered. Patient will return to the clinic to discuss results of the MRI findings when it is done and consider interventional therapy as indicated.? Orders: Orders MR lumbar spine wo con Today G57.01 - Lesion of sciatic nerve, right lower limb, M47.895 - Other spondylosis, thoracolumbar region, M54.16 - Radiculopathy, lumbar region Medications: New gabapentin 300 mg PO TID 30 days 90 caps 0RF pain G57.01 - Lesion of sciatic nerve, right lower limb, M54.16 - Radiculopathy, lumbar region Coding Level of Care Code Est Pt Level 4 (36770) Diagnoses Other spondylosis, thoracolumbar region M47.895 Lumbar radiculopathy M54.16 Neuropathy of right sciatic nerve G57.01 Thoracic degenerative disc disease M51.34 Lower back pain M54.50
[2023-10-04 13:20] VITALS: BP 130/84; PULSE 71; O2SAT 99; BMI 25.8
== END 2023-10-04 13:29 | disposition home or self-care (01) ==
PROVIDERS: PCP Nurse Practitioner Primary Care; Visit Provider Nurse Practitioner Family
DX: M47.895 Other spondylosis, thoracolumbar region (principal); G57.01 Lesion of sciatic nerve, right lower limb; M51.34 Other intervertebral disc degeneration, thoracic region; M54.50 Low back pain, unspecified
CPT/HCPCS: 99214

== ENCOUNTER → 2023-10-04 13:14 | Outpatient (BNVA) | payer OTHER, SELFPAY | PROVIDERS: PCP Nurse Practitioner Primary Care; Visit Provider Nurse Practitioner Family ==

== ENCOUNTER 2023-11-01 16:13 | Outpatient (REF) | payer OTHER, SELFPAY ==
--- NOTE | ~2023-11-01 | MR_ITS ---
EXAMINATION: MR LUMBAR SPINE WITHOUT CONTRAST CLINICAL INFORMATION: Lesion of sciatic nerve, right lower limb COMPARISON: None TECHNIQUE: MRI of the lumbar spine was obtained using routine sequences without contrast. FINDINGS: Lumbar straightening. No significant spondylolisthesis. No suspicious marrow signal or focal osseous lesion. No significant marrow edema. The vertebral body heights are maintained. Disc desiccation and mild height loss at L4-L5 and L5-S1. The conus medullaris terminates at the level of L1. The distal spinal cord is normal in appearance. The cauda equina nerve roots appear normal. No significant abnormalities of the paraspinal musculature. Limited evaluation of the intra-abdominal structures without significant abnormalities. The abdominal aorta is of normal contour and caliber. SPINAL LEVELS: L1-L2: Shallow disc bulge with superimposed right foraminal and extraforaminal protrusion which results in mild right neural foraminal narrowing and contact of the exiting right L1 nerve root. There is also a component of caudally oriented extruded disc material in the subarticular zone extending into the right L2 lateral recess which impinges the traversing right L2 nerve root. No significant central spinal canal stenosis. L2-L3: Shallow disc bulge with superimposed left foraminal and extra foraminal protrusion with annular fissure which results in mild to moderate left neural foraminal narrowing and contacts the exiting left L2 nerve root. No significant central spinal canal stenosis. L3-L4: No significant spinal canal or neuroforaminal narrowing. L4-L5: No significant spinal canal or neuroforaminal narrowing. Shallow disc bulge with posterior annular fissure. L5-S1: No significant spinal canal or neuroforaminal narrowing. Shallow disc bulge with superimposed small central and left subarticular disc protrusion contacts the traversing left S1 nerve root. MR/MR lumbar spine wo con IMPRESSION: 1. At L1-L2, there is a right foraminal and extraforaminal disc protrusion with which results in mild right neural foraminal narrowing and contact of the exiting right L1 nerve root. There is also a component of caudally oriented extruded disc material in the right subarticular zone extending into the right L2 lateral recess which impinges the traversing right L2 nerve root. 2. At L2-L3, a left foraminal and extraforaminal disc protrusion results in mild to moderate left neural foraminal narrowing and contacts the exiting left L2 nerve root. 3. At L5-S1, a central and left subarticular disc protrusion contacts the traversing left S1 nerve root.
== END 2023-11-01 16:14 | disposition home or self-care (01) ==
LOC: HO.MRI 16:13
PROVIDERS: PCP Nurse Practitioner Primary Care; Visit Provider Nurse Practitioner Family
DX: M47.895 Other spondylosis, thoracolumbar region (principal); M54.16 Radiculopathy, lumbar region
CPT/HCPCS: 72148

== ENCOUNTER 2023-11-04 11:24 | Outpatient (REF) | payer OTHER, SELFPAY ==
[2023-11-04 14:41] LABS: Amphetamine Screen Urine Not Detected (Not Detect); Barbiturates, Urine Not Detected (Not Detect); Benzodiazepines Screen Urine Not Detected (Not Detect); Buprenorphine Scr Not Detected (Not Detect); Cannabinoid Screen Urine Not Detected (Not Detect); Cocaine Screen Urine Not Detected (Not Detect); Fentanyl, urine Not Detected (Not Detect); Methadone Screen, Urine Not Detected (Not Detect); Opiate Screen Urine Not Detected (Not Detect); Oxycodone Screen Urine Positive (Not Detect); Phencyclidine Screen Urine Not Detected (Not Detect)
== END 2023-11-04 11:25 | disposition home or self-care (01) ==
LOC: HO.HHCL 11:24
PROVIDERS: Visit Provider Nurse Practitioner Primary Care
DX: M54.9 Dorsalgia, unspecified (principal)
CPT/HCPCS: 80307

== ENCOUNTER 2023-11-17 14:16 | Outpatient (AMB) | payer OTHER, SELFPAY ==
--- NOTE | 2023-11-17 14:34 | MHC.OFFVIS ---
Vital Signs 11/17/23 14:45 Height 5 ft 10 in Weight 180 lb BMI 25.8 BP 146/97 H Blood Pressure Location Rt brachial Position Sitting Pulse 67 Pulse Source Pulse Oximeter Pulse Oximetry (%) 98 Oxygen Delivery Method Room Air Intake Visit Reasons: Discuss MRI Results Allergies No Known Allergies Allergy (Verified 11/17/23 14:46) HPI Comments Details: Patient presents today to discuss lumbar spine MRI results. Patient continues to endorse significant low back pain with bilateral radicular symptoms, worse on the right. Patient also reports bilateral groin pain with radiation into his testicles, left worse than right. He also reports neuropathy sensation in his upper extremities. EMG study in August 2023 were more consistent with sciatic neuropathy/plexopathy rather than radiculopathy. Lumbar spine MRI results reviewed with patient and are noted below. We will proceed with Bilateral L5-S1 TFESI as initial steps and address L1-L2 level at the follow up visit. Denies any bladder or bowel dysfunction or saddle anesthesia. Denies any recent cough, cold, infection, fever, any significant changes in her medical history, medications or recent hospitalizations. RIOR: Patient is a 52 years old male with prior [place] of cervical [place] [facility] [place] inguina hernia repairs in 2019 and 2021, opioid induced constipation, presents today for initial evaluation of chronic low back pain. He was referred to us by Dr. Judge, General Surgery services for chronic bilateral groin pain. Patient reports his groin pain has been minimal and recent CT scan findings showed no recurrent hernias. 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 Denies any recent trauma, injury or falls. Pain affects his daily functioning, work, sleep and social interactions. Back pain is axial and also radiates into both legs laterally with chronic numbness and tingling in both feet without specific dermatome. Patient states he has been Vegetarian for many years and is interested to undergo lab work to rule out causes for peripheral neuropathy in both feet. SLR testing is negative today. Despite pain, patient continues to stay physically active through home exercise program but is interested to pursue skilled PT. Denies any fever, chills, malaise, weakness, foot drop, bladder or bowel dysfunction or saddle anesthesia. Recent abdomen/pelvis CT scan showed degenerative disc disease at L5-S1, with vacuum disc phenomenon and multi-level moderate to severe lower thoracic endplate arthropathy. Reports previous therapeutic cervical injections, including trigger point injections with good results. Denies previous lumbar spine surgery or injections. Location Lower back pain, bilateral leg and feet; minimal bilateral groin pain Duration Chronic pain for >4 years Characteristics of symptom or complaint Intermittent aching, burning, tingling, stabbing Aggravating or associated factors Movements, running, cold weather changes Relieving factors Compression belt, Oxycodone 5mg BID, Ibuprofen Treatment Indoor bike, home gym, Yoga, running 5-6 miles every am, stretching [facility] Medical History Nocturia Cervical radiculopathy HIV (human immunodeficiency virus infection) Surgical History History of left inguinal hernia repair (12/23/21) Hx of right inguinal hernia repair History of spinal surgery (~2015) Family History Maternal Grandfather History of colon cancer Social History Are you a primary care information associate to a significant other at home: No Do you presently have visiting nurse or other home services: No Alcohol intake: current Alcohol intake frequency: a few times a month Patient Tobacco Use Status: Former Tobacco user Tobacco use type: Cigarette Review of Systems Const All systems reviewed & are unremarkable except as noted in HPI and below Reports as per HPI, Denies body aches, Denies chills, Reports difficulty sleeping, Denies fatigue, Denies fever(s), Denies frequent falls, Denies headache(s), Denies malaise, Denies night sweats, Denies weakness and Denies weight loss ENT Denies headache(s) Neuro Denies frequent falls, Denies headache(s) and Denies weakness Endo Denies fatigue Physical Exam General: Appears afebrile. Alert and oriented. Mood and affect appropriate. Follows and participates in conversation appropriately. Respiratory effort is unlabored. No cough. Able to transition from sit to stand unassisted. Ambulates with bilaterally normal heel strike and toe off. General: Yes no CVA tenderness Back/Spine/Pelvis Other: Limited lumbar spine ROM due to pain. Normal gait, no limping. Can flex forward to 70-75 degrees and extend to 5-10 degrees before experiencing lumbar pain. Mild midline tenderness in lower thoracic/upper lumbar spine. Demonstrates 5/5 strength of quadriceps bilaterally as well as flexion/dorsiflexion of bilateral feet against resistance. 2+ pedal pulses bilaterally. Seated straight leg rise with dorsiflexion positive bilaterally. +2 patellar and +1 achilles reflexes bilaterally. Facet loading test positive bilaterally. Romero?s, Pelvic compression and Stinchfield tests are negative bilaterally. No groin pain with I/E hip rotations. Valsalva maneuver negative. Back: no CVA tenderness Cervical Spine: cervical ROM normal, cervical muscular tenderness, Cervical spine scars present (posterior) and No Cervical spine tenderness Thoracic/Lumbar Spine: thoracic and lumbar spine normal to inspection, No Thoracic/lumbar spine scar(s), Lasegue's sign positive (left-localized, right-diffuse) bilateral, pain with thoraco-lumbar ROM, paraspinal muscle tenderness on the right greater than left, thoracic spinal tenderness, lumbar spinal tenderness (L4-S1) and straight leg raise positive Pelvis: buttock tenderness bilaterally and sciatic notch tenderness (left>right) bilateral Sacroiliac joints: bilaterally nontender Extrem General: Yes capillary refill normal, Yes no clubbing, cyanosis or edema and Yes no calf tenderness Results Reviewed Results Reviewed: MR LUMBAR SPINE WITHOUT CONTRAST 11/01/23 CLINICAL INFORMATION: Lesion of sciatic nerve, right lower limb FINDINGS: Lumbar straightening. No significant spondylolisthesis. No suspicious marrow signal or focal osseous lesion. No significant marrow edema. The vertebral body heights are maintained. Disc desiccation and mild height loss at L4-L5 and L5-S1. The conus medullaris terminates at the level of L1. The distal spinal cord is normal in appearance. The cauda equina nerve roots appear normal. No significant abnormalities of the paraspinal musculature. Limited evaluation of the intra-abdominal structures without significant abnormalities. The abdominal aorta is of normal contour and caliber. SPINAL LEVELS: L1-L2: Shallow disc bulge with superimposed right foraminal and extraforaminal protrusion which results in mild right neural foraminal narrowing and contact of the exiting right L1 nerve root. There is also a component of caudally oriented extruded disc material in the subarticular zone extending into the right L2 lateral recess which impinges the traversing right L2 nerve root. No significant central spinal canal stenosis. L2-L3: Shallow disc bulge with superimposed left foraminal and extra foraminal protrusion with annular fissure which results in mild to moderate left neural foraminal narrowing and contacts the exiting left L2 nerve root. No significant central spinal canal stenosis. L3-L4: No significant spinal canal or neuroforaminal narrowing. L4-L5: No significant spinal canal or neuroforaminal narrowing. Shallow disc bulge with posterior annular fissure. L5-S1: No significant spinal canal or neuroforaminal narrowing. Shallow disc bulge with superimposed small central and left subarticular disc protrusion contacts the traversing left S1 nerve root. IMPRESSION: 1. At L1-L2, there is a right foraminal and extraforaminal disc protrusion with which results in mild right neural foraminal narrowing and contact of the exiting right L1 nerve root. There is also a component of caudally oriented extruded disc material in the right subarticular zone extending into the right L2 lateral recess which impinges the traversing right L2 nerve root. 2. At L2-L3, a left foraminal and extraforaminal disc protrusion results in mild to moderate left neural foraminal narrowing and contacts the exiting left L2 nerve root. 3. At L5-S1, a central and left subarticular disc protrusion contacts the traversing left S1 nerve root. CT/CT abdomen pelvis w IV con 07/21/23 OSSEOUS STRUCTURES: There is mild to moderate degenerative disc disease at L5-S1, with vacuum disc phenomenon. There is multi-level moderate to severe lower thoracic endplate arthropathy. No acute or aggressive osseous finding is noted. IMPRESSION: 1. There is a large colonic stool burden, suggesting possible constipation. No obstruction, free intraperitoneal air or abscess is seen. There is no appendicitis or diverticulitis. 2. No right inguinal hernia defect, mass, lymphadenopathy or fluid collection is seen. There are very small fat-containing umbilical and left inguinal hernias. 3. There is degenerative disc disease at L5-S1. EMG and NVC study 09/16/23 IMPRESSION: 1. This is an abnormal study. 2. 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 3. There is no electrodiagnostic evidence for peroneal neuropathy, tibial neuropathy, lumbar radiculopathy or peripheral neuropathy. CLINICAL COMMENT: Given normal CMAPs, findings above are more consistent with sciatic neuropathy/plexopathy rather than radiculopathy. Assessment & Plan Assessment & Plan (1) Other spondylosis, thoracolumbar region: Code(s): M47.895 - Other spondylosis, thoracolumbar region Category: Medical (2) Lumbar radiculopathy: Code(s): M54.16 - Radiculopathy, lumbar region Category: Medical (3) Neuropathy of right sciatic nerve: Code(s): G57.01 - Lesion of sciatic nerve, right lower limb Category: Medical (4) Thoracic degenerative disc disease: Code(s): M51.34 - Other intervertebral disc degeneration, thoracic region Category: Medical (5) Lower back pain: Code(s): M54.50 - Low back pain, unspecified Category: Medical (6) Bilateral groin pain: Code(s): R10.31 - Right lower quadrant pain; R10.32 - Left lower quadrant pain Category: Medical Plan Lumbar spine MRI results were discussed with patient, imaging reviewed with Dr. Morse. We also reviewed EMG and NVC study results. For ongoing radicular symptoms, will schedule Bilateral L5-S1 TFESI with local and fluoroscopy. Expectations, risks and benefits were reviewed. Patient is aware he will be contacted to schedule this procedure. We will address his groin pain with radiation into his testicles, left worse than right after the injection. These symptoms are consistent with MRI findings at L1-L2 level. Continue gabapentin 300 mg TID and monitor for any side effects. All questions and concerns have been answered and patient agreed with the plan. Follow up after injections and sooner as needed. Coding Level of Care Code Est Pt Level 4 (05703) Diagnoses Other spondylosis, thoracolumbar region M47.895 Lumbar radiculopathy M54.16 Neuropathy of right sciatic nerve G57.01 Thoracic degenerative disc disease M51.34 Lower back pain M54.50 Bilateral groin pain R10.31; R10.32
[2023-11-17 14:45] VITALS: BP 146/97; PULSE 67; O2SAT 98; BMI 25.8
== END 2023-11-17 15:10 | disposition home or self-care (01) ==
PROVIDERS: PCP Nurse Practitioner Primary Care; Visit Provider Nurse Practitioner Family
DX: M47.895 Other spondylosis, thoracolumbar region (principal); M54.16 Radiculopathy, lumbar region; M54.50 Low back pain, unspecified; M51.34 Other intervertebral disc degeneration, thoracic region; R10.31 Right lower quadrant pain; G57.01 Lesion of sciatic nerve, right lower limb; R10.32 Left lower quadrant pain
CPT/HCPCS: 99214

== ENCOUNTER → 2023-11-17 14:16 | Outpatient (BNVA) | payer OTHER, SELFPAY | PROVIDERS: PCP Nurse Practitioner Primary Care; Visit Provider Nurse Practitioner Family ==

== ENCOUNTER 2023-12-27 06:15 | Outpatient (REF) | payer OTHER, SELFPAY ==
--- NOTE | ~2023-12-27 | FL_ITS ---
EXAMINATION: XR FLUOROSCOPY WITH IMAGES CLINICAL INFORMATION: Radiculopathy, lumbar region COMPARISON: MR lumbar 11/01/2023 TECHNIQUE: Fluoroscopy provided to: Dr. Morse Fluoroscopy time: 0.6 minutes DAP: 0.324 mGycm2 Images: 4 FINDINGS: 4 images demonstrate bilateral L5 nerve root sleeve injections with contrast. FL/FL guidance in treatment room IMPRESSION: Fluoroscopic guidance. Please refer to the full operative report for details. Electronically signed by: Brian Wolfe MD 02/24/2024 02:05 PM EDT
== END 2023-12-27 06:16 | disposition home or self-care (01) ==
LOC: CF 06:15
PROVIDERS: Visit Provider Anesthesiology
DX: M54.16 Radiculopathy, lumbar region (principal)
CPT/HCPCS: 64483; J3301; Q9967

== ENCOUNTER 2023-12-27 07:19 | Outpatient (AMB) | payer OTHER, SELFPAY ==
--- NOTE | 2023-12-27 07:21 | A.OFFVIS_ITS ---
Vital Signs 12/27/23 07:28 12/27/23 08:32 Height 5 ft 10 in Weight 189 lb BMI 27.1 BP 146/83 H 146/91 H Blood Pressure Location Lt brachial Rt brachial Position Sitting Sitting Respiration 16 16 Pulse 79 73 Pulse Source Pulse Oximeter Pulse Oximeter Pulse Oximetry (%) 97 98 Oxygen Delivery Method Room Air Room Air Comment Pre-Op Post-Op Intake Visit Reasons: Bilateral L5-S1 TFESI [employer] Required: No Accompanied by: Self / Same As Patient Allergies No Known Allergies Allergy (Verified 12/27/23 07:29) PFSH Medical History Nocturia Cervical radiculopathy HIV (human immunodeficiency virus infection) Surgical History History of left inguinal hernia repair (12/23/21) Hx of right inguinal hernia repair History of spinal surgery (~2015) Family History Maternal Grandfather History of colon cancer Social History Are you a primary progressive care unit registered nurse to a significant other at home: No Do you presently have visiting nurse or other home services: No Alcohol intake: current Alcohol intake frequency: a few times a month Patient Tobacco Use Status: Former Tobacco user Tobacco use type: Cigarette Physical Exam Vital Signs: Last Vital Signs Pulse 73 12/27/23 08:32 Resp 16 12/27/23 08:32 BP 146/91 H 12/27/23 08:32 Pulse Ox 98 12/27/23 08:32 Oxygen Delivery Method Room Air 12/27/23 08:32 BMI result Body Mass Index 27.1 Assessment & Plan Assessment & Plan (1) Lumbar radiculopathy: Code(s): M54.16 - Radiculopathy, lumbar region Category: Medical Plan Transforaminal L5-S1 bilateral epidural steroid injection Informed consent was thoroughly explained to the patient before the procedure.? The patient came to the operating room.? He was positioned prone on operating table with a pillow under his abdomen.? Time-out was performed delineating correct site and side of the procedure, nature of the injection, name and date of of the patient. The lower back of the patient was prepped with ChloraPrep and draped with sterile utility towels.? C-arm was brought over the operating field and sq picture of L5 vertebra were demonstrated on the screen.? The right side was chosen 1st as the side of the injection.? Tilting machine ipsilateral to the right at the level of L5 1st the most prominent picture of the right pedicle was obtained on the screen.? 3 mm below the level of the lowest point of the pedicle projection to the skin small amount of lidocaine 1% 2 cc was injected to anesthetize the skin.? After that 5 in 22 gauge Quincke point needle was inserted through the skin wheal and was advanced to were the L5-S1 foramina on anterior posterior , lateral and oblique views intermittently.? When tip of the needle entered foramina projection on AP view injection of the contrast was performed demonstrating epidural and perineural spread of the contrast.? On the lateral view contrast was spread in the epidural fashion. After that injection of the treatment medicine 4 cc of lidocaine 1% mixed with Kenalog 40 mg was injected into the foramina.? Injection of the contrast and injection of the treatment medicine was observed live on the screen.? No intrathecal and no intravascular spread of the contrast was noted. After that the procedure was performed in the mirroring fashion on L5-S1 level on the left Upon completion of the procedure sterile Band-Aids were applied. Patient tolerated procedure well he was taken outside of the operating room where he recovered uneventfully.? He went home without immediate complications. Orders: Orders FL guidance in treatment room Today M54.16 - Radiculopathy, lumbar region Coding Level of Care Code Procedure Only Diagnoses Lumbar radiculopathy M54.16
[2023-12-27 07:28] VITALS: BP 146/83; PULSE 79; RESP 16; O2SAT 97; BMI 27.1
[2023-12-27 08:32] VITALS: BP 146/91; PULSE 73; RESP 16; O2SAT 98
== END 2023-12-27 08:56 | disposition home or self-care (01) ==
LOC: HO.PMCPRC 07:19
PROVIDERS: PCP Nurse Practitioner Primary Care; Visit Provider Anesthesiology
DX: M54.16 Radiculopathy, lumbar region (principal)
CPT/HCPCS: 64483

== ENCOUNTER 2024-01-02 08:20 | Outpatient (REF) | payer OTHER, SELFPAY ==
[2024-01-02 11:05] LABS: MANUAL DIFF FLAG NO
[2024-01-02 11:13] LABS: Basophils Absolute Auto 0.1 X10*3/uL (0.0-0.2); Basophils Percent Auto 0.5 % (0-2); Eosinophils Percent Auto 0.3 % (0-4); Hematocrit 44.3 % (42.0-52.0); Hemoglobin 15.1 g/dl (14.0-18.0); Imm Gran Abs Auto 0.23 X10*3/uL (0.00-0.03); Imm Gran Pct Auto 2.2 % (0.0-0.4); Lymphocytes Absolute Auto 2.1 X10*3/uL (1.2-4.9); Lymphocytes Percent Auto 20.1 % (20-40); Mean Corpuscular HGB Conc 34.1 g/dl (31.0-36.0); Mean Corpuscular Hemoglobin 32.5 pg (27.0-33.0); Mean Corpuscular Volume 95.3 fL (80.0-98.0); Mean Platelet Volume 9.5 fL (9.4-12.4); Monocytes Absolute Auto 1.1 X10*3/uL (0.1-1.2); Monocytes Percent Auto 10.4 % (2-11); Neutrophils Absolute Auto 7.1 x10*3/uL (2.0-8.3); Neutrophils Percent Auto 66.5 % (45-73); Platelet Count 334 X10*3/uL (160-400); Red Blood Count 4.65 X10*6/uL (4.60-5.80); Red Cell Distribution Width 13.6 % (11.0-16.0); White Blood Count 10.6 X10*3/uL (4.8-10.8)
[2024-01-02 11:32] LABS: Alanine Aminotransferase 29 U/L (0-40); Albumin Level 4.6 g/dL (3.5-5.0); Alkaline Phosphatase 93 U/L (39-117); Anion Gap 14 (12-20); Aspartate Amino Transferase 25 U/L (5-37); Bilirubin Total 0.5 mg/dL (0.0-1.0); Blood Urea Nitrogen 25 mg/dL (9-16); Calcium 10.3 mg/dL (8.4-10.2); Carbon Dioxide 24 mmol/L (22-29); Chloride 107 mmol/L (96-108); Cholesterol 202 mg/dL (<200); Estimated Glomerular Filt Rate > 60; Glucose Random 98 mg/dL (60-115); HDL Cholesterol 58 mg/dL (>40); LDL Cholesterol Calculated 129 mg/dL (<100); Potassium 4.5 mmol/L (3.3-5.1); Sodium 140 mmol/L (135-145); Total Protein 7.8 g/dL (6.5-8.0); Triglycerides 78 mg/dL (<150)
[2024-01-02 11:42] LABS: Hepatitis A Antibody IgG REACTIVE (Nonreactive); ~Hepatitis A Antibody IgG 1.31 S/CO (0.00-0.99)
[2024-01-02 11:43] LABS: HBS Num1 15.66 mIU/mL (0-7.99); HBc Num1 0.08 S/CO (0.00-0.79); HBsAGNum1 0.28 S/CO (0.00-0.99); Hepatitis B Core Antibody Nonreactive (Nonreactive); Hepatitis B Surface Antigen Negative (Negative); ~Hepatitis B Surface Antibody REACTIVE (Nonreactive)
[2024-01-02 12:59] LABS: Reflex LDLD? No
[2024-01-02 13:15] LABS: CT PCR NOT DETECTED (Not Detect.); NG PCR NOT DETECTED (Not Detect.)
[2024-01-03 12:48] LABS: RPR Rapid Plasma Reagin REACTIVE (NON-REACTIVE)
[2024-01-04 23:28] LABS: TS Negative Control Passed; TS Panel A 1; TS Panel B 0; TS Positive Control Passed; TSpotTB Negative (Negative)
[2024-01-05 08:27] LABS: HIV RNA PCR Qn Copies 200 copies/mL (NOT DETECTED)
[2024-01-05 18:47] LABS: Absolute CD3 Count 1522 cells/uL (840-3060); Absolute CD4 Count 1055 cells/uL (490-1740); Absolute CD8 Count 473 cells/uL (180-1170); Absolute Lymphocytes 2598 cells/uL (850-3900); CD4 CD8 Ratio 2.23 (0.86-5.00); Percent CD3 Cells 59 % (57-85); Percent CD4 Cells 41 % (30-61); Percent CD8 Cells 18 % (12-42)
== END 2024-01-02 08:21 | disposition home or self-care (01) ==
LOC: HO.HHCL 08:20
PROVIDERS: Visit Provider Internal Medicine
DX: B20 Human immunodeficiency virus [HIV] disease (principal)
CPT/HCPCS: 36415; 80053; 80061; 85025; 86359; 86360; 86481; 86592; 86593; 86704; 86706; 86708; 87340; 87491; 87536; 87591

== ENCOUNTER 2024-03-02 13:15 | Outpatient (AMB) | payer OTHER, SELFPAY ==
--- NOTE | 2024-03-02 13:19 | A.OFFVIS_ITS ---
Vital Signs 03/02/24 13:30 Height 5 ft 10 in Weight 185 lb BMI 26.5 BP 139/87 Blood Pressure Location Rt brachial Position Sitting Pulse 76 Pulse Source Pulse Oximeter Pulse Oximetry (%) 100 Oxygen Delivery Method Room Air Intake Visit Reasons: BILATERAL L5, S1 TFESI Allergies No Known Allergies Allergy (Verified 03/02/24 13:31) HPI Comments Details: Patient presents today to assess response to Bilateral L5-S1 TFESI on 12/27/[address] Morse. Patient reports 100% pain relief since injection for one month with significant improvement in his daily activities and functioning, mobility, sleep and social interactions. He returned to running and gym exercises and reports ongoing 50% pain relief. He interested to repeat same injection next month as this allows him to be significantly less symptomatic and more functional. Patient continues totake gabapentin and oxycodone prescribed by his PCP for chronic neck and back pain syndromes. Denies any bladder or bowel dysfunction or saddle anesthesia. Reports recent COVID illness last month but has been feeling better with Paxlovid. RIOR: Patient is a 52 years old male with prior history of cervical disc herniation s/p cervical surgery at [facility] in [place] and bilateral inguina hernia repairs in 2019 and 2021, opioid induced constipation, presents today for initial evaluation of chronic low back pain. He was referred to us by Dr. Judge, General Surgery services for chronic bilateral groin pain. Patient reports his groin pain has been minimal and recent CT scan findings showed no recurrent hernias. 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 Denies any recent trauma, injury or falls. Pain affects his daily functioning, work, sleep and social interactions. Back pain is axial and also radiates into both legs laterally with chronic numbness and tingling in both feet without specific dermatome. Patient states he has been Vegetarian for many years and is interested to undergo lab work to rule out causes for peripheral neuropathy in both feet. SLR testing is negative t karishma. Despite pain, patient continues to stay physically active through home exercise program but is interested to pursue skilled PT. Denies any fever, chills, malaise, weakness, foot drop, bladder or bowel dysfunction or saddle anesthesia. Recent abdomen/pelvis CT scan showed degenerative disc disease at L5-S1, with vacuum disc phenomenon and multi-level moderate to severe lower thoracic endplat e arthropathy. Reports previous therapeutic cervical injections, including trigger point injections with good results. Denies previous lumbar spine surgery or injections. Location Lower back pain, bilateral leg and feet; minimal bilateral groin pain Duration Chronic pain for >4 years Characteristics of symptom or complaint Intermittent aching, burning, tingling, stabbing Aggravating or associated factors Movements, running, cold weather changes Relieving factors Compression belt, Oxycodone 5mg BID, Ibuprofen Treatment Indoor bike, home gym, Yoga, running 5-6 miles every am, stretching [facility] Medical History Nocturia Cervical radiculopathy HIV (human immunodeficiency virus infection) Surgical History History of left inguinal hernia repair (12/23/21) Hx of right inguinal hernia repair History of spinal surgery (~2015) Family History Maternal Grandfather History of colon cancer Social History Are you a primary senior care assistant to a significant other at home: No Do you presently have visiting nurse or other home services: No Alcohol intake: current Alcohol intake frequency: a few times a month Patient Tobacco Use Status: Former Tobacco user Tobacco use type: Cigarette Review of Systems Const All systems reviewed & are unremarkable except as noted in HPI and below Reports as per HPI, Denies body aches, Denies chills, Denies difficulty sleeping, Denies excessive sweating, Denies fever(s), Denies night sweats, Denies weakness and Denies weight loss Neuro Denies weakness Endo Denies excessive sweating Physical Exam Vital Signs: Last Vital Signs Pulse 76 03/02/24 13:30 BP 139/87 03/02/24 13:30 Pulse Ox 100 03/02/24 13:30 Oxygen Delivery Method Room Air 03/02/24 13:30 BMI result Body Mass Index 26.5 General: Appears afebrile. Alert and oriented. Mood and affect appropriate. Follows and participates in conversation appropriately. Respiratory effort is unlabored. No cough. Able to transition from sit to stand unassisted. Ambulates with bilaterally normal heel strike and toe off. General: Yes no CVA tenderness Back/Spine/Pelvis Other: Normal gait, no limping. Can flex forward to 70-75 degrees and extend to 5-10 degrees before experiencing lumbar pain. No midline tenderness in lower thoracic/upper lumbar spine. Demonstrates 5/5 strength of quadriceps bilaterally as well as flexion/dorsiflexion of bilateral feet against resistance. 2+ pedal pulses bilaterally. Seated straight leg rise with dorsiflexion positive bilaterally. +2 patellar and +1 achilles reflexes bilaterally. Facet loading test positive bilaterally. Romero?s, Pelvic compression and Stinchfield tests are negative bilaterally. No groin pain with I/E hip rotations. Valsalva maneuv er negative. Back: no CVA tenderness Cervical Spine: cervical ROM normal, cervical muscular tenderness, Cervical spine scars present (posterior) and No Cervical spine tenderness Thoracic/Lumbar Spine: thoracic and lumbar spine normal to inspection, No Thoracic/lumbar spine scar(s), Lasegue's sign positive bilateral, pain with thoraco-lumbar ROM, paraspinal muscle tenderness on the right greater than left, thoracic spinal tenderness, lumbar spinal tenderness (L4-S1) and straight leg raise positive Pelvis: buttock tenderness bilaterally and sciatic notch tenderness (left>right) bilateral Sacroiliac joints: bilaterally nontender Assessment & Plan Assessment & Plan (1) Other spondylosis, thoracolumbar region: Code(s): M47.895 - Other spondylosis, thoracolumbar region Category: Medical (2) Lumbar radiculopathy: Code(s): M54.16 - Radiculopathy, lumbar region Category: Medical (3) Neuropathy of right sciatic nerve: Code(s): G57.01 - Lesion of sciatic nerve, right lower limb Category: Medical (4) Thoracic degenerative disc disease: Code(s): M51.34 - Other intervertebral disc degeneration, thoracic region Category: Medical (5) Lower back pain: Code(s): M54.50 - Low back pain, unspecified Category: Medical Plan Patient is over 2 months s/p Bilateral L5-S1 TFESI with significant pain relief during the first month after injection and ongoing 50% pain relief which he reports effects are slowly fading out. He would like to repeat same injection next month. Patient reports significant improvement in his daily activities and functioning, mobility, sleep, mood, and social interactions. Schedule repeat Bilateral L5-S1 TFESI with local and fluoroscopy. Expectations, risks and benefits were reviewed. Patient is aware he will be contacted to schedule this procedure after first week of March. All questions and concerns have been answered and patient agreed with the plan. Follow up after injections and sooner as needed. Coding Level of Care Code Est Pt Level 4 (96205) Complex EM visit Add On G2211 Diagnoses Other spondylosis, thoracolumbar region M47.895 Lumbar radiculopathy M54.16 Neuropathy of right sciatic nerve G57.01 Thoracic degenerative disc disease M51.34 Lower back pain M54.50
[2024-03-02 13:30] VITALS: BP 139/87; PULSE 76; O2SAT 100; BMI 26.5
== END 2024-03-02 13:51 | disposition home or self-care (01) ==
PROVIDERS: PCP Nurse Practitioner Primary Care; Visit Provider Nurse Practitioner Family
DX: M47.895 Other spondylosis, thoracolumbar region (principal); M54.16 Radiculopathy, lumbar region; G57.01 Lesion of sciatic nerve, right lower limb; M51.34 Other intervertebral disc degeneration, thoracic region; M54.50 Low back pain, unspecified
CPT/HCPCS: 99214

== ENCOUNTER → 2024-03-02 13:15 | Outpatient (BNVA) | payer OTHER, SELFPAY | PROVIDERS: PCP Nurse Practitioner Primary Care; Visit Provider Nurse Practitioner Family ==

== ENCOUNTER 2024-04-24 06:08 | Outpatient (REF) | payer OTHER, SELFPAY | END 2024-04-24 06:09 | disposition home or self-care (01) | LOC: CF 06:08 | PROVIDERS: Visit Provider Anesthesiology | DX: M54.16 Radiculopathy, lumbar region (principal) | CPT/HCPCS: 64483; J2003; J3301; Q9967 ==

== ENCOUNTER 2024-04-24 07:31 | Outpatient (AMB) | payer OTHER, SELFPAY ==
[2024-04-24 07:41] VITALS: BP 140/85; PULSE 64; O2SAT 99
--- NOTE | 2024-04-24 07:41 | A.OFFVIS_ITS ---
Vital Signs 04/24/24 07:41 04/24/24 08:54 BP 140/85 H 150/84 H Blood Pressure Location Lt brachial Lt brachial Position Sitting Sitting Pulse 64 66 Pulse Source Pulse Oximeter Pulse Oximeter Pulse Oximetry (%) 99 100 Oxygen Delivery Method Room Air Room Air Intake Visit Reasons: BILATERAL L5, S1 TFESI/ATIVAN REQUESTED Allergies No Known Allergies Allergy (Verified 03/02/24 13:31) PFSH Medical History Nocturia Cervical radiculopathy HIV (human immunodeficiency virus infection) Surgical History History of left inguinal hernia repair (12/23/21) Hx of right inguinal hernia repair History of spinal surgery (~2015) Family History Maternal Grandfather History of colon cancer Social History Are you a primary healthcare architect to a significant other at home: No Do you presently have visiting nurse or other home services: No Alcohol intake: current Alcohol intake frequency: a few times a month Patient Tobacco Use Status: Former Tobacco user Tobacco use type: Cigarette Physical Exam Vital Signs: Last Vital Signs Pulse 66 04/24/24 08:54 BP 150/84 H 04/24/24 08:54 Pulse Ox 100 04/24/24 08:54 Oxygen Delivery Method Room Air 04/24/24 08:54 Assessment & Plan Assessment & Plan (1) Lumbar radiculopathy: Code(s): M54.16 - Radiculopathy, lumbar region Category: Medical Plan Transforaminal L5-S1 bilateral epidural steroid injection Informed consent was thoroughly explained to the patient before the procedure. The risks were delineated as bleeding infection peripheral nerve damage spinal cord damage and headache. ? The patient came to the operating room.? He was positioned prone on operating table with a pillow under his abdomen.? Time-out was performed delineating correct site and side of the procedure, nature of the injection, name and date of of the patient. The lower back of the patient was prepped with ChloraPrep and draped with sterile utility towels.? C-arm was brought over the operating field and sq picture of L5 vertebra were demonstrated on the screen.? The right side was chosen 1st as the side of the injection.? Tilting machine ipsilateral to the right at the level of L5 1st the most prominent picture of the right pedicle was obtained on the screen.? 3 mm below the level of the lowest point of the pedicle projection to the skin small amount of lidocaine 1% 2 cc was injected to anesthetize the skin.? After that 5 in 22 gauge Quincke point needle was inserted through the skin wheal and was advanced to were the L5-S1 foramina on anterior posterior , lateral and oblique views intermittently.? When tip of the needle entered foramina projection on AP view injection of the contrast was performed demonstrating epidural and perineural spread of the contrast.? On the lateral view contrast was spread in the epidural fashion. After that injection of the treatment medicine 4 cc of lidocaine 1% mixed with Kenalog 40 mg was injected into the foramina.? Injection of the contrast and injection of the treatment medicine was observed live on the screen.? No intrathecal and no intravascular spread of the contrast was noted. After that the procedure was performed in the mirroring fashion on L5-S1 level on the left Upon completion of the procedure sterile Band-Aids were applied. Patient tolerated procedure well he was taken outside of the operating room where he recovered uneventfully.? He went home without immediate complications. Orders: Orders FL guidance in treatment room Today M54.16 - Radiculopathy, lumbar region Medications: New lorazepam (Ativan) Take 30 minutes prior to arrival to procedure 1 mg PO ONCE 1 tab 0RF anxiety Coding Level of Care Code Procedure Only Diagnoses Lumbar radiculopathy M54.16
[2024-04-24 08:54] VITALS: BP 150/84; PULSE 66; O2SAT 100
== END 2024-04-24 08:55 | disposition home or self-care (01) ==
LOC: HO.PMCPRC 07:31
PROVIDERS: PCP Nurse Practitioner Primary Care; Visit Provider Anesthesiology
DX: M54.16 Radiculopathy, lumbar region (principal)
CPT/HCPCS: 64483

== ENCOUNTER 2024-05-18 18:26 | Outpatient (REF) | payer OTHER, SELFPAY ==
[2024-05-19 14:48] LABS: Adenovirus PCR Not Detected (Not Detect.); Bordetella parapertussis PCR Not Detected (Not Detect.); Bordetella pertussis PCR Not Detected (Not Detect.); Chlamydia pneumoniae PCR Not Detected (Not Detect.); Coronavirus 229E PCR Not Detected (Not Detect.); Coronavirus HKU1 PCR Not Detected (Not Detect.); Coronavirus NL63 PCR Not Detected (Not Detect.); Coronavirus OC43 PCR Not Detected (Not Detect.); Human metapneumovirus PCR Not Detected (Not Detect.); Influenza A PCR Not Detected (Not Detect.); Influenza B PCR Not Detected (Not Detect.); Mycoplasma pneumoniae PCR Not Detected (Not Detect.); Parainfluenza 1 PCR Not Detected (Not Detect.); Parainfluenza 2 PCR Not Detected (Not Detect.); Parainfluenza 3 PCR Not Detected (Not Detect.); Parainfluenza 4 PCR Not Detected (Not Detect.); RSV PCR Detected (Not Detect.); Rhino/Enterovirus PCR Not Detected (Not Detect.)
[2024-05-19 15:08] LABS: SARS-CoV-2 PCR Not Detected (Not Detect.)
== END 2024-05-18 18:27 | disposition home or self-care (01) ==
LOC: HO.HHCLNP 18:26
PROVIDERS: Visit Provider Emergency Medicine
DX: R05.1 Acute cough (principal)
CPT/HCPCS: 87633

== ENCOUNTER 2024-06-04 16:16 | Outpatient (REF) | payer OTHER, SELFPAY ==
[2024-06-04 18:23] LABS: Estimated Average Glucose 114 mg/dL; Hemoglobin A1C 137.8149 umol/L; Hemoglobin A1c % 5.6 % (<6.0); Total Hemoglobin (HGBA1C) 3696.4472 umol/L
[2024-06-04 18:25] LABS: Anion Gap 12 (12-20); Blood Urea Nitrogen 21 mg/dL (9-16); Carbon Dioxide 28 mmol/L (22-29); Chloride 104 mmol/L (96-108); Estimated Glomerular Filt Rate > 60; Potassium 4.7 mmol/L (3.3-5.1); Sodium 139 mmol/L (135-145)
[2024-06-04 18:36] LABS: TSH reflex Free T4 0.92 uIU/mL (0.32-4.0)
[2024-06-04 18:41] LABS: Glucose Random 87 mg/dL (60-115)
== END 2024-06-04 16:17 | disposition home or self-care (01) ==
LOC: HO.HHCL 16:16
PROVIDERS: Visit Provider Nurse Practitioner Primary Care
DX: R00.2 Palpitations (principal); E16.2 Hypoglycemia, unspecified
CPT/HCPCS: 36415; 80048; 83036; 84443

== ENCOUNTER 2024-07-26 11:00 | Emergency (ER) | payer OTHER, SELFPAY ==
--- NOTE | ~2024-07-26 | XR_ITS ---
EXAMINATION: XR CHEST CLINICAL INFORMATION: CP COMPARISON: None available. TECHNIQUE: 2 views of the chest were obtained. FINDINGS: No consolidation, pleural effusion or pneumothorax. Cardiomediastinal silhouette size is normal. Multilevel thoracic spondylosis, mild to moderate in the mid thoracic spine. Metallic hardware no fully included in the [id number] lower cervical spine. XR/XR chest 2V IMPRESSION: No acute airspace disease. Electronically signed by: Luis Peters MD 07/26/2024 11:34 AM [facility]
--- NOTE | ~2024-07-26 | CT_ITS ---
EXAMINATION: CT HEAD WITHOUT CONTRAST CLINICAL INFORMATION: headache COMPARISON: None available. TECHNIQUE: Contiguous axial imaging was performed from the skull base to vertex without intravenous administration of contrast. This CT examination was performed using dose optimization techniques as appropriate, variously including the following: *Automated exposure control *Adjustment of mA and/or kV according to patient size (this includes techniques or standardized protocols for targeted exams where dose is matched to indication/reason for exam; i.e. extremities or head) *Use of iterative reconstruction technique DLP: 696 mGy-cm FINDINGS: No acute intracranial hemorrhage, mass effect, midline shift, hydrocephalus or herniation. Norman-white matter differentiation is normal. Posterior cranial fossa contents demonstrated no acute intracranial hemorrhage or mass effect. Probable old traumatic deformity nasal bones. The bony calvarium is intact. No air-fluid levels in the included paranasal sinuses. Tympanic cavities and mastoid cells are aerated. Sellar/suprasellar region demonstrated no gross masses or hemorrhage. CT/CT head/brain wo IV con IMPRESSION: No acute intracranial hemorrhage or acute brain abnormality by CT. Electronically signed by: Luis Peters MD 07/26/2024 12:31 PM [facility]
[2024-07-26 11:13] VITALS: BP 131/94; PULSE 78; RESP 20; TEMP 37.1; O2SAT 100; BMI 28.5
--- NOTE | 2024-07-26 11:13 | ED.GENADULT ---
HPI - General Adult General Chief complaint: Neuro Symptoms/Deficit Stated complaint: Numbness L side, headache Time Seen by Provider: 07/26/24 11:12 Related Data Home Medications ?Medication ?Instructions ?Recorded ?Confirmed baclofen 10 mg tablet 20 mg PO TID 03/04/20 08/01/23 bictegravir 50 mg-emtricitabine 1 tab PO DAILY 03/04/20 08/01/23 200 mg-tenofovir alafenam 25 mg tablet multivit,Ca,min-iron 8 mg-folic tab PO 03/04/20 08/01/23 acid 200 mcg-lycopene 600 mcg tablet (Centrum Ultra Men's) naloxone 4 mg/actuation nasal 4 mg intranasal Q3M PRN Opiate 03/04/20 08/01/23 spray (Narcan) Reversal oxycodone-acetaminophen 5 mg-325 1 tab PO BID PRN 08/22/23 mg tablet quetiapine 100 mg tablet 100 mg PO BEDTIME 08/22/23 sildenafil 25 mg tablet 25 mg PO DAILY 08/22/23 fluoxetine 20 mg capsule 20 mg PO DAILY 07/27/24 07/27/24 losartan 50 mg tablet 50 mg PO DAILY 07/27/24 07/27/24 Previous Rx's ?Medication ?Instructions ?Recorded gabapentin 300 mg capsule 300 mg PO TID for pain 30 days #90 04/23/24 caps Allergies Allergy/AdvReac Type Severity Reaction Status Date / Time No Known Allergies Allergy Verified 07/27/24 13:56 [facility] Past Medical History Medical History Nocturia Cervical radiculopathy HIV (human immunodeficiency virus infection) Surgical History History of left inguinal hernia repair (12/23/21) Hx of right inguinal hernia repair History of spinal surgery (~2015) Family History Family History Maternal Grandfather History of colon cancer Social History Social History Are you a primary director career services to a significant other at home: No Do you presently have visiting nurse or other home services: No Alcohol intake: current Alcohol intake frequency: a few times a month Patient Tobacco Use Status: Former Tobacco user Tobacco use type: Cigarette Physical Exam ED Vital Signs: BMI result Body Mass Index 28.5 Course Course Course Narrative: This is an RME: Additional HPI, ROS, PE not included below will be deferred to primary provider. RME assessment and note performed by: Leatha Simon PA-C This is a 53-year-old male, with a hx of panic disorder, HTN, and HIV+ with undetectable viral load, who presents to the ER with complaints of numbness to left side of body since 07/22. He states that he developed a headache for >24 hours. Reports that since February, he has had panic disorders developed. Used to take toxic levels of caffeine . Neurologically intact. He is anxious appearing. Tongue is midline, symmetric smile. NIH stroke scale 0 Plan: Labs, EKG, CXR, CT head. Reevaluation(s) Reevaluation #1: Patient left without completing treatment. Medical Decision Making Lab Data 07/26/24 11:29 07/26/24 11:29 Labs: Lab Results 07/26/24 Range/Units 11:29 WBC 6.5 (4.8-10.8) X10*3/uL RBC 4.62 (4.60-5.80) X10*6/uL Hgb 15.1 (14.0-18.0) g/dl Hct 43.9 (42.0-52.0) % MCV 95.0 (80.0-98.0) fL MCH 32.7 (27.0-33.0) pg MCHC 34.4 (31.0-36.0) g/dl RDW 12.5 (11.0-16.0) % Plt Count 293 (160-400) X10*3/uL MPV 8.5 L (9.4-12.4) fL Immature Gran % (Auto) 0.6 H (0.0-0.4) % Neut % (Auto) 59.3 (45-73) % Lymph % (Auto) 28.5 (20-40) % [place] % (Auto) 9.4 (2-11) % Eos % (Auto) 1.7 (0-4) % Baso % (Auto) 0.5 (0-2) % Lymph # (Auto) 1.9 (1.2-4.9) X10*3/uL [place] # (Auto) 0.6 (0.1-1.2) X10*3/uL Eos # (Auto) 0.1 (0.0-0.4) X10*3/uL Baso # (Auto) 0.0 (0.0-0.2) X10*3/uL Abs Immat Gran (auto) 0.04 H (0.00-0.03) X10*3/uL Absolute Neuts (auto) 3.9 (2.0-8.3) x10*3/uL Absolute Nucleated RBC 0.000 (0.0-0.012) X10*3/uL Nucleated RBC % (auto) 0.0 (0.0-0.2) /100WBC Sodium 141 (135-145) mmol/L Potassium 4.4 (3.3-5.1) mmol/L Chloride 107 (96-108) mmol/L Carbon Dioxide 28 (22-29) mmol/L Anion Gap 10 L (12-20) BUN 13 (9-16) mg/dL Creatinine 0.98 (0.5-1.4) mg/dL Estim Creat Clear Calc 93.3 Estimated GFR > 60 Random Glucose 101 (60-115) mg/dL Calcium 9.3 (8.4-10.2) mg/dL Magnesium 2.2 (1.6-2.6) mg/dL Total Bilirubin 0.5 (0.0-1.0) mg/dL Direct Bilirubin 0.2 (0.0-0.5) mg/dL AST 36 (5-37) U/L ALT 58 H (0-40) U/L Alkaline Phosphatase 107 (39-117) U/L Troponin I High Sens < 2.7 (<3.5-35.0) ng/L Total Protein 7.5 (6.5-8.0) g/dL Albumin 4.2 (3.5-5.0) g/dL Influenza Type A (PCR) NEGATIVE (Negative) Influenza Type B (PCR) NEGATIVE (Negative) RSV RNA Qual (PCR) NEGATIVE (Negative) SARS-CoV-2 RNA (RT-PCR) NEGATIVE (Negative) Discharge Plan Discharge Clinical Impression: Tingling Patient Disposition: Left W/O Completing Treatment Prescriptions: No Action gabapentin 300 mg capsule 300 mg PO TID 30 Days Qty: 90 3RF baclofen 10 mg tablet 20 mg PO TID mofyrzvuw-hccqgwdq-dafhgfm ala 50-200-25 mg tablet 1 tab PO DAILY Centrum Ultra Men's 8 mg iron- 200 mcg-600 mcg tablet PO Narcan 4 mg/actuation spray,non-aerosol 4 mg intranasal Q3M PRN (Reason: Opiate Reversal) Rx Instructions: spray 1 dose into ONE nostril; alternate nostrils w each dose until help arrives oxycodone-acetaminophen 5-325 mg tablet 1 tab PO BID PRN quetiapine 100 mg tablet 100 mg PO BEDTIME sildenafil 25 mg tablet 25 mg PO DAILY fluoxetine 20 mg capsule 20 mg PO DAILY losartan 50 mg tablet 50 mg PO DAILY Discharge Date/Time: 07/26/24 17:06
--- NOTE | 2024-07-26 11:18 | ECG_ITS ---
Test Reason : CHEST PAIN Blood Pressure : */* mmHG Vent. Rate : 67 BPM Atrial Rate : 67 BPM P-R Int : 142 ms QRS Dur : 76 ms QT Int : 388 ms P-R-T Axes : 47 38 46 degrees QTcB Int : 409 ms Normal sinus rhythm Normal ECG No previous ECGs available Referred By: Leatha Simon Electronically Signed By: SHIRAZ COLES MD
[2024-07-26 11:53] LABS: MANUAL DIFF FLAG NO
[2024-07-26 11:55] LABS: Basophils Percent Auto 0.5 % (0-2); Eosinophils Absolute Auto 0.1 X10*3/uL (0.0-0.4); Eosinophils Percent Auto 1.7 % (0-4); Hematocrit 43.9 % (42.0-52.0); Hemoglobin 15.1 g/dl (14.0-18.0); Imm Gran Abs Auto 0.04 X10*3/uL (0.00-0.03); Imm Gran Pct Auto 0.6 % (0.0-0.4); Lymphocytes Absolute Auto 1.9 X10*3/uL (1.2-4.9); Lymphocytes Percent Auto 28.5 % (20-40); Mean Corpuscular HGB Conc 34.4 g/dl (31.0-36.0); Mean Corpuscular Hemoglobin 32.7 pg (27.0-33.0); Mean Platelet Volume 8.5 fL (9.4-12.4); Monocytes Absolute Auto 0.6 X10*3/uL (0.1-1.2); Monocytes Percent Auto 9.4 % (2-11); Neutrophils Absolute Auto 3.9 x10*3/uL (2.0-8.3); Neutrophils Percent Auto 59.3 % (45-73); Platelet Count 293 X10*3/uL (160-400); Red Blood Count 4.62 X10*6/uL (4.60-5.80); Red Cell Distribution Width 12.5 % (11.0-16.0); White Blood Count 6.5 X10*3/uL (4.8-10.8)
[2024-07-26 12:11] LABS: Alanine Aminotransferase 58 U/L (0-40); Albumin Level 4.2 g/dL (3.5-5.0); Alkaline Phosphatase 107 U/L (39-117); Anion Gap 10 (12-20); Aspartate Amino Transferase 36 U/L (5-37); Bilirubin Direct 0.2 mg/dL (0.0-0.5); Bilirubin Total 0.5 mg/dL (0.0-1.0); Blood Urea Nitrogen 13 mg/dL (9-16); Calcium 9.3 mg/dL (8.4-10.2); Carbon Dioxide 28 mmol/L (22-29); Chloride 107 mmol/L (96-108); Creatinine Clr Calc Pharmacy 93.3; Estimated Glomerular Filt Rate > 60; Glucose Random 101 mg/dL (60-115); Magnesium 2.2 mg/dL (1.6-2.6); Potassium 4.4 mmol/L (3.3-5.1); Sodium 141 mmol/L (135-145); Total Protein 7.5 g/dL (6.5-8.0)
[2024-07-26 12:19] LABS: Troponin-I High Sensitivity < 2.7 ng/L (<3.5-35.0)
[2024-07-26 12:39] LABS: Influenza A PCR NEGATIVE (Negative); Influenza B PCR NEGATIVE (Negative); Resp Syncy Virus RNA Qual PCR NEGATIVE (Negative); SARS COV2 PCR INHOUSE NEGATIVE (Negative)
== END 2024-07-26 17:06 | disposition left against medical advice (07) ==
PROVIDERS: Physician Assistant Medical; Emergency Provider Emergency Medicine; PCP Nurse Practitioner Primary Care
DX: R20.0 Anesthesia of skin (principal); R07.89 Other chest pain; R51.9 Headache, unspecified; Z03.818 Encounter for observation for suspected exposure to other biological agents ruled out; Z79.899 Other long term (current) drug therapy; Z87.891 Personal history of nicotine dependence
CPT/HCPCS: 0241U; 70450; 71046; 80048; 80076; 83735; 84484; 85025; 93005; 99283; 99284

== ENCOUNTER → 2024-07-26 11:18 | Outpatient (BNV) | payer OTHER, SELFPAY | PROVIDERS: PCP Nurse Practitioner Primary Care; Visit Provider Internal Medicine Cardiovascular Disease | DX: R07.9 Chest pain, unspecified (principal) | CPT/HCPCS: 93010 ==

== ENCOUNTER → 2024-07-26 11:19 | Outpatient (BNV) | payer OTHER, SELFPAY | PROVIDERS: PCP Nurse Practitioner Primary Care; Visit Provider Radiology Diagnostic Radiology | DX: R07.9 Chest pain, unspecified (principal); R51.9 Headache, unspecified | CPT/HCPCS: 70450; 71046 ==

== ENCOUNTER 2024-07-27 13:45 | Outpatient (AMB) | payer OTHER, SELFPAY ==
--- NOTE | 2024-07-27 13:42 | MHC.OFFVIS ---
Vital Signs 07/27/24 13:56 Height 5 ft 9 in Weight 197 lb 6 oz BMI 29.1 BP 134/76 Blood Pressure Location Rt brachial Position Sitting Pulse 73 Pulse Source Pulse Oximeter Pulse Oximetry (%) 98 Oxygen Delivery Method Room Air Intake Visit Reasons: low back pain with radiculopathy Personnel Associate Required: No Accompanied by: Self / Same As Patient Allergies No Known Allergies Allergy (Verified 07/27/24 13:56) Medication List - Last Reconciled 07/27/24 by VÍCTOR Caballero baclofen 20 mg PO TID xvtxlehlk-drcxyfiz-ssdueeo ala 50-200-25 mg 1 tab PO DAILY fluoxetine 20 mg PO DAILY gabapentin 300 mg PO TID 30 days losartan 50 mg PO DAILY mv,Ca,niy-pgts-QA-lycopene 8 mg iron- 200 mcg-600 mcg (Centrum Ultra Men's) tabs PO naloxone 4 mg/actuation (Narcan) 4 mg intranasal Q3M PRN oxycodone-acetaminophen 5-325 mg 1 tab PO BID PRN quetiapine 100 mg PO BEDTIME sildenafil 25 mg PO DAILY HPI Comments Details: The patient is a 53-year-old male presenting with acute on chronic low back pain following a prior lumbar radiculopathy treated with an L5-S1 epidural steroid injection on 04/24/24. This provided him about 3 month pain relief, allowing the patient to maintain daily activities with tolerable discomfort with home exercise program, ADLs, mobility and work. However, his radicular back pain has returned to baseline. He also reports, within the last three days, acute onset of left-sided numbness accompanied by burning and shooting pain in his left upper extremity and lower extremities. Denies any fever or chills, dizziness, shortness of breaths, chest pain, abdominal or groin pain, weakness, foot drop, bladder or bowel dysfunction or saddle anesthesia. He [place] [facility] [place]24 with with complaints of numbness to left side of body since 07/22. He states that he developed a headache for >24 hours. Reports that since February, he has had panic disorders developed. Used to take toxic levels of caffeine . Neurologically intact. He is anxious appearing. Tongue is midline, symmetric smile. Patient reports he was diagnosed with panic disorder in February-March 2024, managed with regular psychiatric follow-up, persists with increased frequency of panic episodes. Pain Management: - Affect: Panic disorder contributes to emotional distress, currently under therapy and psychiatric management. Lower back pain with radiculopathy. - Analgesia: Pain currently 12/30, managed with baclofen and gabapentin; oxycodone-acetaminophen prescribed by PCP for moderate- severe pain. - Adverse Effects: No noted side effects from current medications. - Activities of Daily Living: Pain significantly restricts walking, standing, sleep and functional abilities. - Aberrant Drug Related Behaviors: No indication of misuse; medications taken as prescribed. PRIOR: Patient presents today to assess response to Bilateral L5-S1 TFESI on 12/27/[address] Morse. Patient reports 100% pain relief since injection for one month with significant improvement in his daily activities and functioning, mobility, sleep and social interactions. He returned to running and gym exercises and reports ongoing 50% pain relief. He interested to repeat same injection next month as this allows him to be significantly less symptomatic and more functional. Patient continues totake gabapentin and oxycodone prescribed by his PCP for chronic neck and back pain syndromes. Denies any bladder or bowel dysfunction or saddle anesthesia. Reports recent COVID illness last month but has been feeling better with Paxlovid. PRIOR: Patient is a 52 years old male with prior history of cervical disc herniation s/p cervical surgery at [facility] [place] in [place] and bilateral inguina hernia repairs in 2019 and 2021, opioid induced constipation, presents today for initial evaluation of chronic low back pain. He was referred to us by Dr. Judge, General Surgery services for chronic bilateral groin pain. Patient reports his groin pain has been minimal and recent CT scan findings showed no recurrent hernias. 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 Denies any recent trauma, injury or falls. Pain affects his daily functioning, work, sleep and social interactions. Back pain is axial and also radiates into both legs laterally with chronic numbness and tingling in both feet without specific dermatome. Patient states he has been Vegetarian for many years and is interested to undergo lab work to rule out causes for peripheral neuropathy in both feet. SLR testing is negative today. Despite pain, patient continues to stay physically active through home exercise program but is interested to pursue skilled PT. Denies any fever, chills, malaise, weakness, foot drop, bladder or bowel dysfunction or saddle anesthesia. Recent abdomen/pelvis CT scan showed degenerative disc disease at L5-S1, with vacuum disc phenomenon and multi-level moderate to severe lower thoracic endplate arthropathy. Reports previous therapeutic cervical injections, including trigger point injections with good results. Denies previous lumbar spine surgery or injections. Location Lower back pain, bilateral leg and feet; minimal bilateral groin pain Duration Chronic pain for >4 years Characteristics of symptom or complaint Intermittent aching, burning, tingling, stabbing Aggravating or associated factors Movements, running, cold weather changes Relieving factors Compression belt, Oxycodone 5mg BID, Ibuprofen Treatment Indoor bike, home gym, Yoga, running 5-6 miles every am, stretching [facility] Medical History Nocturia Cervical radiculopathy HIV (human immunodeficiency virus infection) Surgical History History of left inguinal hernia repair (12/23/21) Hx of right inguinal hernia repair History of spinal surgery (~2015) Family History Maternal Grandfather History of colon cancer Social History Are you a primary health care coach to a significant other at home: No Do you presently have visiting nurse or other home services: No Alcohol intake: current Alcohol intake frequency: a few times a month Patient Tobacco Use Status: Former Tobacco user Tobacco use type: Cigarette Review of Systems Const All systems reviewed & are unremarkable except as noted in HPI and below Denies body aches, Denies chills, Reports difficulty sleeping, Reports fatigue, Denies fever(s), Denies frequent falls, Denies headache(s), Denies malaise, Denies night sweats, Denies weakness and Denies weight loss ENT Denies headache(s) Neuro Denies confusion, Denies frequent falls, Denies headache(s) and Denies weakness Psych Reports anxiety, Denies confusion, Denies depression, Reports difficulty concentrating, Denies irritability, Denies mood swings, Reports panic attacks, Denies tactile hallucinations, Denies homicidal ideation and Denies suicidal ideation Endo Reports fatigue Physical Exam Vital Signs: Last Vital Signs Pulse 73 07/27/24 13:56 BP 134/76 07/27/24 13:56 Pulse Ox 98 07/27/24 13:56 Oxygen Delivery Method Room Air 07/27/24 13:56 BMI result Body Mass Index 29.1 General: Appears afebrile. Alert and oriented. Mood and affect appropriate. Very anxious. Follows and participates in conversation appropriately. Respiratory effort is unlabored. No cough. Able to transition from sit to stand unassisted. Ambulates with bilaterally normal heel strike and toe off, reports increase in back pain with heel standing. Const General: No confusion Orientation/consciousness: No confusion General: Yes no CVA tenderness Back/Spine/Pelvis Other: Normal gait, no limping. Can flex forward to 70-75 degrees and extend to 5-10 degrees before experiencing lumbar pain. No midline tenderness in lower thoracic/upper lumbar spine. Mild TTP in lower lumbar spine. Demonstrates 5/5 strength of quadriceps bilaterally as well as flexion/dorsiflexion of bilateral feet against resistance. 2+ pedal pulses bilaterally. Seated straight leg rise with dorsiflexion positive bilaterally, worse on the right. +2 patellar and +1 achilles reflexes bilaterally. Facet loading test positive bilaterally. Romero?s, Pelvic compression and Stinchfield tests are negative bilaterally. No groin pain with I/E hip rotations. Valsalva maneuver negative. Strength and sensation grossly intact. Back: no CVA tenderness Cervical Spine: cervical ROM normal, cervical muscular tenderness, Cervical spine scars present (posterior) and No Cervical spine tenderness Thoracic/Lumbar Spine: thoracic and lumbar spine normal to inspection, No Thoracic/lumbar spine scar(s), Lasegue's sign positive bilateral and diffuse, pain with thoraco-lumbar ROM, paraspinal muscle tenderness on the right greater than left, thoracic spinal tenderness, lumbar spinal tenderness (L4-S1) and straight leg raise positive Pelvis: buttock tenderness bilaterally and sciatic notch tenderness (left>right) bilateral Sacroiliac joints: bilaterally nontender Neuro General: No confusion Extrem General: Yes capillary refill normal, Yes no clubbing, cyanosis or edema and Yes no calf tenderness Results Reviewed Results Reviewed: MR LUMBAR SPINE WITHOUT CONTRAST 11/01/23 CLINICAL INFORMATION: Lesion of sciatic nerve, right lower limb FINDINGS: Lumbar straightening. No significant spondylolisthesis. No suspicious marrow signal or focal osseous lesion. No significant marrow edema. The vertebral body heights are maintained. Disc desiccation and mild height loss at L4-L5 and L5-S1. The conus medullaris terminates at the level of L1. The distal spinal cord is normal in appearance. The cauda equina nerve roots appear normal. No significant abnormalities of the paraspinal musculature. Limited evaluation of the intra-abdominal structures without significant abnormalities. The abdominal aorta is of normal contour and caliber. SPINAL LEVELS: L1-L2: Shallow disc bulge with superimposed right foraminal and extraforaminal protrusion which results in mild right neural foraminal narrowing and contact of the exiting right L1 nerve root. There is also a component of caudally oriented extruded disc material in the subarticular zone extending into the right L2 lateral recess which impinges the traversing right L2 nerve root. No significant central spinal canal stenosis. L2-L3: Shallow disc bulge with superimposed left foraminal and extra foraminal protrusion with annular fissure which results in mild to moderate left neural foraminal narrowing and contacts the exiting left L2 nerve root. No significant central spinal canal stenosis. L3-L4: No significant spinal canal or neuroforaminal narrowing. L4-L5: No significant spinal canal or neuroforaminal narrowing. Shallow disc bulge with posterior annular fissure. L5-S1: No significant spinal canal or neuroforaminal narrowing. Shallow disc bulge with superimposed small central and left subarticular disc protrusion contacts the traversing left S1 nerve root. IMPRESSION: 1. At L1-L2, there is a right foraminal and extraforaminal disc protrusion with which results in mild right neural foraminal narrowing and contact of the exiting right L1 nerve root. There is also a component of caudally oriented extruded disc material in the right subarticular zone extending into the right L2 lateral recess which impinges the traversing right L2 nerve root. 2. At L2-L3, a left foraminal and extraforaminal disc protrusion results in mild to moderate left neural foraminal narrowing and contacts the exiting left L2 nerve root. 3. At L5-S1, a central and left subarticular disc protrusion contacts the traversing left S1 nerve root. CT/CT abdomen pelvis w IV con 07/21/23 OSSEOUS STRUCTURES: There is mild to moderate degenerative disc disease at L5-S1, with vacuum disc phenomenon. There is multi-level moderate to severe lower thoracic endplate arthropathy. No acute or aggressive osseous finding is noted. IMPRESSION: 1. There is a large colonic stool burden, suggesting possible constipation. No obstruction, free intraperitoneal air or abscess is seen. There is no appendicitis or diverticulitis. 2. No right inguinal hernia defect, mass, lymphadenopathy or fluid collection is seen. There are very small fat-containing umbilical and left inguinal hernias. 3. There is degenerative disc disease at L5-S1. EMG and NVC study 09/16/23 IMPRESSION: 1. This is an abnormal study. 2. 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 3. There is no electrodiagnostic evidence for peroneal neuropathy, tibial neuropathy, lumbar radiculopathy or peripheral neuropathy. CLINICAL COMMENT: Given normal CMAPs, findings above are more consistent with sciatic neuropathy/plexopathy rather than radiculopathy. CT head/brain wo IV con 07/26/24 IMPRESSION: No acute intracranial hemorrhage or acute brain abnormality by CT. Assessment & Plan Assessment & Plan (1) Other spondylosis, thoracolumbar region: Code(s): M47.895 - Other spondylosis, thoracolumbar region Category: Medical (2) Lumbar radiculopathy: Code(s): M54.16 - Radiculopathy, lumbar region Category: Medical (3) Lower back pain: Code(s): M54.50 - Low back pain, unspecified Category: Medical (4) Peripheral neuropathy: Code(s): G62.9 - Polyneuropathy, unspecified Category: Medical Plan Schedule repeat Bilateral L5-S1 TFESI with local and fluoroscopy for acute on chronic lower back pain with bilateral radiculopathy. Expectations, risks and benefits were reviewed. Patient is aware he will be contacted to schedule this procedure. For acute left-sided paraesthesia and numbness patient will be follow up with his PCP for ER follow yesterday with grossly normal lab work and no acute intracranial hemorrhage or acute brain abnormality by CT. Patient has significant panic disorder. Psychiatric management for panic disorder remains in place with regular therapeutic sessions. All questions and concerns have been answered and patient agreed with the plan. Follow up after injections and sooner as needed. Patient was informed and verbally consented to the use of an ambient scribe for clinic note documentation during this visit. Patient Instructions: Discussion Notes: I discussed with the patient that the recurrence of lumbar radiculopathy might necessitate a repeat epidural steroid injection, which could offer relief similar to the initial treatment, approved by the patient. I recommended follow-up with the PCP regarding new-onset neurological symptoms and reiterated the importance of persistent symptoms monitoring. Recent ER work up revealed no acute findings as noted above. Discussed maintaining current medications for pain management and continuing psychiatric therapies. Patient Instructions: - Follow up with your primary care provider for left-sided numbness and ER follow up 07/26/24. - Maintain current medication regimen for pain; monitor any adverse effects. - Stay hydrated and continue daily physical exercises within comfort limits. Avoid caffeine beverages. - Seek immediate care if symptoms worsen or become intolerable. - Continue follow-up with your therapist and psychiatrist for panic disorder management. - Await call for repeat injection scheduling once insurance approval is obtained. Coding Level of Care Code Est Pt Level 4 (77717) Complex EM visit Add On G2211 Diagnoses Other spondylosis, thoracolumbar region M47.895 Lumbar radiculopathy M54.16 Lower back pain M54.50 Peripheral neuropathy G62.9
[2024-07-27 13:56] VITALS: BP 134/76; PULSE 73; O2SAT 98; BMI 29.1
== END 2024-07-27 14:20 | disposition home or self-care (01) ==
PROVIDERS: PCP Nurse Practitioner Primary Care; Visit Provider Nurse Practitioner Family
DX: M47.895 Other spondylosis, thoracolumbar region (principal); M54.16 Radiculopathy, lumbar region; M54.50 Low back pain, unspecified; G62.9 Polyneuropathy, unspecified
CPT/HCPCS: 99214

== ENCOUNTER → 2024-07-27 13:45 | Outpatient (BNVA) | payer OTHER, SELFPAY | PROVIDERS: PCP Nurse Practitioner Primary Care; Visit Provider Nurse Practitioner Family ==

== ENCOUNTER 2024-08-21 08:00 | Outpatient (REF) | payer OTHER, SELFPAY ==
[2024-08-21 11:27] LABS: MANUAL DIFF FLAG NO
[2024-08-21 11:34] LABS: Basophils Absolute Auto 0.1 X10*3/uL (0.0-0.2); Basophils Percent Auto 0.8 % (0-2); Eosinophils Absolute Auto 0.2 X10*3/uL (0.0-0.4); Eosinophils Percent Auto 2.4 % (0-4); Hematocrit 39.4 % (42.0-52.0); Hemoglobin 13.3 g/dl (14.0-18.0); Imm Gran Abs Auto 0.04 X10*3/uL (0.00-0.03); Imm Gran Pct Auto 0.6 % (0.0-0.4); Lymphocytes Percent Auto 31.6 % (20-40); Mean Corpuscular HGB Conc 33.8 g/dl (31.0-36.0); Mean Corpuscular Hemoglobin 32.1 pg (27.0-33.0); Mean Corpuscular Volume 95.2 fL (80.0-98.0); Mean Platelet Volume 9.2 fL (9.4-12.4); Monocytes Absolute Auto 0.6 X10*3/uL (0.1-1.2); Monocytes Percent Auto 9.9 % (2-11); Neutrophils Absolute Auto 3.4 x10*3/uL (2.0-8.3); Neutrophils Percent Auto 54.7 % (45-73); Platelet Count 316 X10*3/uL (160-400); Red Blood Count 4.14 X10*6/uL (4.60-5.80); Red Cell Distribution Width 12.4 % (11.0-16.0); White Blood Count 6.3 X10*3/uL (4.8-10.8)
[2024-08-21 11:43] LABS: Alanine Aminotransferase 39 U/L (0-40); Albumin Level 3.9 g/dL (3.5-5.0); Alkaline Phosphatase 92 U/L (39-117); Anion Gap 9 (12-20); Aspartate Amino Transferase 34 U/L (5-37); Bilirubin Total 0.4 mg/dL (0.0-1.0); Blood Urea Nitrogen 25 mg/dL (9-16); Carbon Dioxide 26 mmol/L (22-29); Chloride 107 mmol/L (96-108); Cholesterol 158 mg/dL (<200); Estimated Glomerular Filt Rate > 60; Glucose Random 90 mg/dL (60-115); HDL Cholesterol 39 mg/dL (>40); LDL Cholesterol Calculated 101 mg/dL (<100); Potassium 4.8 mmol/L (3.3-5.1); Sodium 137 mmol/L (135-145); Total Protein 6.6 g/dL (6.5-8.0); Triglycerides 90 mg/dL (<150)
[2024-08-21 11:54] LABS: Reflex LDLD? No
[2024-08-22 21:13] LABS: HIV RNA PCR Qn Copies 237 copies/mL (NOT DETECTED); HIV RNA PCR Qn Log Copies 2.37 (NOT DETECTED)
[2024-08-24 21:49] LABS: Absolute CD3 Count 1047 cells/uL (840-3060); Absolute CD4 Count 734 cells/uL (490-1740); Absolute CD8 Count 316 cells/uL (180-1170); Absolute Lymphocytes 1944 cells/uL (850-3900); CD4 CD8 Ratio 2.32 (0.86-5.00); Percent CD3 Cells 54 % (57-85); Percent CD4 Cells 38 % (30-61); Percent CD8 Cells 16 % (12-42)
== END 2024-08-21 08:01 | disposition home or self-care (01) ==
LOC: HO.HHCL 08:00
PROVIDERS: Visit Provider Internal Medicine
DX: B20 Human immunodeficiency virus [HIV] disease (principal); Z13.6 Encounter for screening for cardiovascular disorders
CPT/HCPCS: 36415; 80053; 80061; 85025; 86359; 86360; 87536

== ENCOUNTER 2024-09-04 13:58 | Outpatient (AMB) | payer OTHER, SELFPAY ==
[2024-09-04 14:01] VITALS: BP 118/72; PULSE 69; BMI 28.6
--- NOTE | 2024-09-04 14:01 | MHC.OFFVIS ---
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[employer] Room Operator Required: No Allergies No Known Allergies Allergy (Verified 09/04/24 14:03) Medication List - Last Reconciled 09/04/24 by ELENA Hinton baclofen 20 mg PO TID nmnthpfpn-vkopbqla-fqmzzhm ala 50-200-25 mg 1 tab PO DAILY fluoxetine 20 mg PO DAILY gabapentin 300 mg PO TID 30 days hydroxyzine HCl 50 mg PO BID losartan 50 mg PO DAILY mv,Ca,xck-mrhp-VS-lycopene 8 mg iron- 200 mcg-600 mcg (Centrum Ultra Men's) tabs PO naloxone 4 mg/actuation (Narcan) 4 mg intranasal Q3M PRN oxycodone-acetaminophen 5-325 mg 1 tab PO BID PRN propranolol 20 mg PO TID quetiapine 100 mg PO BEDTIME HPI HPI 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 Today he reports that starting last February he was getting episodes of rapid heartbeat that was physically uncomfortable for him and causing much anxiety. He now believes he was having panic attacks. The episodes would occur randomly and last for several minutes before gradually resolving. He tells me he was drinking excess amounts of caffeine, up to 5 cups of caffeinated plaque coffee per day. He was also having energy shots. He runs 5 miles daily. He would not get symptoms while running. He denies any chest discomfort, shortness of breath, lightheadedness, presyncope, syncope. He has never been diagnosed with any cardiac conditions. He has no known heart disease in his family. Prior smoker, occasional alcohol use. He has been taking propranolol to help with the palpitations and panic attacks and he does believe that has helped. He has also greatly cut down his caffeine and stimulant intake. [facility] Medical History Nocturia Cervical radiculopathy HIV (human immunodeficiency virus infection) Surgical History History of left inguinal hernia repair (12/23/21) Hx of right inguinal hernia repair History of spinal surgery (~2015) Family History (Updated 09/04/24 @ 14:06 by Leonora Mullins CMA) Maternal Grandfather History of colon cancer Father Diabetes Social History (Updated 09/04/24 @ 14:05 by Leonora Mullins CMA) Are you a primary career services director to a significant other at home: No Do you presently have visiting nurse or other home services: No Alcohol intake: current Alcohol intake frequency: a few times a month Patient Tobacco Use Status: Former Tobacco user Tobacco use type: Cigarette Substance Use Type: Marijuana Review of Systems Const Details: issues with panic attacks - getting better under control recently All systems reviewed & are unremarkable except as noted in HPI and below ENT Denies dizziness Card Details: palpitations Denies chest pain, Denies chest pain at rest, Denies chest pain with activity, Reports rapid heart rate, Denies pedal edema, Denies edema, Denies leg edema, Denies lightheadedness, Denies palpitations, Denies dyspnea, Denies dyspnea on exertion and Denies orthopnea Resp Denies cough, Denies dyspnea and Denies dyspnea on exertion GI Denies hematochezia and Denies change in stool character Musc Denies abnormal gait, Denies limited range of motion, Denies muscle cramps, Denies muscle weakness, Denies numbness, Denies radiating pain into limb, Denies stiffness and Denies tingling Neuro Denies abnormal gait, Denies dizziness, Denies numbness and Denies tingling Endo Denies palpitations Physical Exam Vital Signs: Last Vital Signs Pulse 69 09/04/24 14:01 BP 118/72 09/04/24 14:01 BMI result Body Mass Index 28.6 Const General: cooperative, healthy appearing, comfortable and no acute distress Orientation/consciousness: patient oriented x3 Neck Neck: Yes normal visual inspection and Yes no JVD Resp Effort & Inspection: normal respiratory effort Auscultation: clear to auscultation bilaterally, no rales, no rhonchi and no wheezes Cardio Rate: regular rate Rhythm: regular rhythm Heart sounds: S1 normal heart sound present, S2 normal heart sound present, no gallops, no murmurs and no rubs Neuro General: patient oriented x3 Extrem General: Yes normal to inspection, No no pedal edema and No calf tenderness Psych Appearance: grossly normal Mental Status: mental status grossly normal Speech and movement: Normal speech and movement present Office Procedures EKG Details: Today, read by me, normal sinus rhythm, rate 69, QTC 415 millisecond [id number], Complete Assessment & Plan Assessment & Plan (1) Palpitations: Code(s): R00.2 - Palpitations Category: Medical Plan: Heart palpitations which sound like either sinus tachycardia or atrial tachycardia. The mechanism of each was reviewed with him in detail. Continue avoid caffeine intake. Do not consume energy drinks. Continue propranolol as ordered by PCP. Will check Holter monitor to assess for arrhythmia. Will check echocardiogram to assess for structural heart disease. Plan to call him with results. If within normal limits his cardiology follow-up can be p.r.n.. (2) Hypertension: Code(s): I10 - Essential (primary) hypertension Category: Medical Plan: Blood pressure goal less than 130/80. Currently well controlled on his current losartan and propranolol. No med changes made. Plan Time spent on chart review, documentation, interview and assessment Orders: Orders CA echo transthoracic complete Today I10 - Essential (primary) hypertension, R00.2 - Palpitations ECG 3 day holter monitor Today I10 - Essential (primary) hypertension, R00.2 - Palpitations Coding Level of Care Code New Pt Level 3 (83799) Complex EM visit Add On G2211 Diagnoses Palpitations R00.2 Hypertension I10 CPT Codes EKG - CPT: [id number], Complete ([id number]) Time Spent (min) 25
== END 2024-09-04 14:51 | disposition home or self-care (01) ==
LOC: HO.HCS 13:58
PROVIDERS: PCP Nurse Practitioner Primary Care; Visit Provider Nurse Practitioner Family
DX: R00.2 Palpitations (principal); I10 Essential (primary) hypertension
CPT/HCPCS: 93010; 99203

== ENCOUNTER → 2024-09-04 13:58 | Outpatient (BNVA) | payer OTHER, SELFPAY | PROVIDERS: PCP Nurse Practitioner Primary Care; Visit Provider Nurse Practitioner Family | DX: I10 Essential (primary) hypertension (principal); R00.2 Palpitations | CPT/HCPCS: 93005 ==

== ENCOUNTER 2024-09-17 15:50 | Outpatient (REF) | payer OTHER, SELFPAY ==
[2024-09-17 18:08] LABS: Prostate Specific Antigen 0.59 ng/mL (<0.05-4.0)
== END 2024-09-17 15:51 | disposition home or self-care (01) ==
LOC: HO.HHCL 15:50
PROVIDERS: Visit Provider Nurse Practitioner Primary Care
DX: Z12.5 Encounter for screening for malignant neoplasm of prostate (principal)
CPT/HCPCS: 36415; 84153

== ENCOUNTER 2024-09-25 06:18 | Outpatient (REF) | payer OTHER, SELFPAY ==
--- NOTE | ~2024-09-25 | FL_ITS ---
EXAMINATION: FL GUIDANCE ONLY HISTORY: M54.16 - Radiculopathy, lumbar region COMPARISON: None available. TECHNIQUE: Fluoroscopy time: 0.5 minutes. Cumulative Dose: 6.50 mGy. DAP: 0.113 mGym2 Images: 2. FINDINGS: Images demonstrate needles and contrast material in the regions of the bilateral L5-S1 facet joints. FL/FL guidance in treatment room IMPRESSION: Fluoroscopy during procedure. Please see procedure report for additional information. Electronically signed by: Garth Hoang MD 09/25/2024 11:50 AM EDT
== END 2024-09-25 06:19 | disposition home or self-care (01) ==
LOC: CF 06:18
PROVIDERS: Visit Provider Anesthesiology
DX: M54.16 Radiculopathy, lumbar region (principal)
CPT/HCPCS: 64479; J2003; J3301; Q9967

== ENCOUNTER 2024-09-25 09:24 | Outpatient (AMB) | payer OTHER, SELFPAY ==
[2024-09-25 09:37] VITALS: BP 117/70; PULSE 76; O2SAT 98; BMI 28.5
--- NOTE | 2024-09-25 09:37 | MHC.OFFVIS ---
Vital Signs 09/25/24 09:37 09/25/24 10:39 Height 5 ft 9 in 5 ft 9 in Weight 193 lb BMI 28.5 BP 117/70 127/82 Blood Pressure Location Rt brachial Rt brachial Position Sitting Sitting Pulse 76 66 Pulse Source Pulse Oximeter Pulse Oximeter Pulse Oximetry (%) 98 100 Oxygen Delivery Method Room Air Room Air Intake Visit Reasons: BILATERAL L5, S1 TFESI/ATIVAN REQUESTED Allergies No Known Allergies Allergy (Verified 09/25/24 09:38) PFSH Medical History Nocturia Cervical radiculopathy HIV (human immunodeficiency virus infection) Surgical History History of left inguinal hernia repair (12/23/21) Hx of right inguinal hernia repair History of spinal surgery (~2015) Family History (Updated 09/04/24 @ 14:06 by Leonora Mullins CMA) Maternal Grandfather History of colon cancer Father Diabetes Social History (Updated 09/04/24 @ 14:05 by Leonora Mullins CMA) Are you a primary progressive care manager to a significant other at home: No Do you presently have visiting nurse or other home services: No Alcohol intake: current Alcohol intake frequency: a few times a month Patient Tobacco Use Status: Former Tobacco user Tobacco use type: Cigarette Substance Use Type: Marijuana Physical Exam Vital Signs: Last Vital Signs Pulse 66 09/25/24 10:39 BP 127/82 09/25/24 10:39 Pulse Ox 100 09/25/24 10:39 Oxygen Delivery Method Room Air 09/25/24 10:39 BMI result Body Mass Index 28.5 Assessment & Plan Assessment & Plan (1) Lumbar radiculopathy: Code(s): M54.16 - Radiculopathy, lumbar region Category: Medical Plan Transforaminal L5-S1 bilateral epidural steroid injection Informed consent was thoroughly explained to the patient before the procedure. The risks were delineated as bleeding infection peripheral nerve damage spinal cord damage and headache. ? The patient came to the operating room.? He was positioned prone on operating table with a pillow under his abdomen.? Time-out was performed delineating correct site and side of the procedure, nature of the injection, name and date of of the patient. The lower back of the patient was prepped with ChloraPrep and draped with sterile utility towels.? C-arm was brought over the operating field and sq picture of L5 vertebra were demonstrated on the screen.? The right side was chosen 1st as the side of the injection.? Tilting machine ipsilateral to the right at the level of L5 1st the most prominent picture of the right pedicle was obtained on the screen.? 3 mm below the level of the lowest point of the pedicle projection to the skin small amount of lidocaine 1% 2 cc was injected to anesthetize the skin.? After that 5 in 22 gauge Quincke point needle was inserted through the skin wheal and was advanced to were the L5-S1 foramina on anterior posterior , lateral and oblique views intermittently.? When tip of the needle entered foramina projection on AP view injection of the contrast was performed demonstrating epidural and perineural spread of the contrast.? On the lateral view contrast was spread in the epidural fashion. After that injection of the treatment medicine 4 cc of lidocaine 1% mixed with Kenalog 40 mg was injected into the foramina.? Injection of the contrast and injection of the treatment medicine was observed live on the screen.? No intrathecal and no intravascular spread of the contrast was noted. After that the procedure was performed in the mirroring fashion on L5-S1 level on the left Upon completion of the procedure sterile Band-Aids were applied. Patient tolerated procedure well he was taken outside of the operating room where he recovered uneventfully.? He went home without immediate complications. Orders: Orders FL guidance in treatment room Today M54.16 - Radiculopathy, lumbar region Medications: New lorazepam (Ativan) Take 30 minutes prior to arrival to procedure 1 mg PO ONCE 1 tab 0RF anxiety Coding Level of Care Code Procedure Only Diagnoses Lumbar radiculopathy M54.16
[2024-09-25 10:39] VITALS: BP 127/82; PULSE 66; O2SAT 100
== END 2024-09-25 10:39 | disposition home or self-care (01) ==
LOC: HO.PMCPRC 09:24
PROVIDERS: PCP Nurse Practitioner Primary Care; Visit Provider Anesthesiology
DX: M54.16 Radiculopathy, lumbar region (principal)
CPT/HCPCS: 64479; 64480

== ENCOUNTER → 2024-10-16 12:50 | Outpatient (REF) | payer OTHER, SELFPAY ==
--- NOTE | 2024-10-16 13:06 | CA_ITS ---
Transthoracic Echocardiogram Patient (Last, First, Middle): Adan Ferguson, Gender: Male Date of : 1970 Age: 54 Procedure Date: 10/16/2024 Procedure Type: Transthoracic Echocardiogram Location: OP Height: 175.26 cm Weight: 83.92 kg BSA: 2.00 m2 Heart Rate: 68 bpm BP: 127 / 82 mmHg Tower Dragline Operator: RONAL Referring MD: Kaela Lim [id number] CONSULTANT-C Ms Sql Developer: Dl Pham MD Symptoms: R00.2 - Palpitations Study Quality: Adequate ECG Rhythm: Sinus Conclusions: - Essentially normal study Findings Left Ventricle Normal left ventricular size, thickness, and systolic function. The visually estimated ejection fraction is between 65-70%. Spectral Doppler is indicative of a normal filling pattern. Right Ventricle Normal right ventricular cavity size and systolic function. Atria Both atria are normal in size. There is no evidence of interatrial shunt. Aortic Valve Normal aortic valve structure and function. There is no aortic valve stenosis. There is no aortic valve regurgitation. Mitral Valve Normal mitral valve structure and function. There is trace mitral valve regurgitation. There is no mitral valve stenosis. Pulmonic Valve The pulmonic valve is likely normal. Tricuspid Valve Normal tricuspid valve structure. Tricuspid regurgitation envelope is inadequate for calculation of right ventricular systolic pressure. Normal right atrial pressure. Great Vessels All visible segments of the aorta are normal in size. The pulmonary artery was not well visualized. Venous The inferior vena cava is normal in size and collapses greater than 50% with inspiration. Pericardium/Pleural There is no evidence of pericardial effusion. Prior Study Comparison No prior study available for comparison. Measurements 2D Linear Measurements IVSd: 1.06 0.6-0.9/0.6-1.0 cm LVIDd: 4.07 3.9-5.3/4.2-5.9 cm LVIDd Index: 2.04 2.4-3.2/2.2-3.1 cm/m2 LVIDs: 2.66 2.0-3.6 cm LVPWd: 0.88 0.7-1.1 cm LA Diam: 3.30 2.7-3.8/3.0-4.0 cm LAIDs Index: 1.65 1.5-2.3 cm/m2 LV Mass: 155.42 67-162/88-224 g LV Mass Index: 77.71 43-95/49-115 g/m2 LVOT Diam: 2.00 3.0+(-)1.3 cm 2D Systolic Function EF 4C: 60.50 >55% EF 2C: 69.60 >55% EF BiP: 65.10 >55% Mitral Valve MV Pk E: 0.79 MV PK A: 0.79 MV Decel Time: 263.00 E/A: 1.00 E'Lateral: 11.30 E'Medial: 7.29 E/E' Med: 10.80 E/E' Lat: 7.00 PHT: 77.00 MVA PHT: 2.86 Decel [place]: 3.00 Aortic Valve AoV Pk Dave: 1.40 AoV Pk Grad: 8.00 MARIELLE: 2.68 LVOT LVOT Pk Dave: 1.28 LVOT Mn Dave: 0.81 LVOT VTI: 0.23 LVOT Pk Grad: 7.00 LVOT Mn Grad: 3.00 LVOT Diam: 2.00 LVOT Area: 3.14 Diastolic Function MV Pk E: 0.79 MV Pk A: 0.79 E/A: 1.00 E'Medial: 7.29 E/E' Med: 10.80 E' Laterial: 11.30 E/E' Lat: 7.00 Right Ventricle TAPSE (mm): 20.00 TVS' Dave: 12.80 Tricuspid Valve RA Press: 3.00 Great Vessels Aorta Sinus of Valsalva: 3.40 2.0-3.5 cm Ao Asc: 3.60 2.1-3.4 cm Pulmonary Valve PV Pk Dave: 1.86 Peak PV Grad: 14.00 Updated in Other Vendor System with Status of Final Dl Pham MD electronically signed on 10/17/2024 4:30:13 PM with status of Final
== END ==
LOC: HO.CARD 12:50
PROVIDERS: Visit Provider Nurse Practitioner Family
DX: R00.2 Palpitations (principal); I10 Essential (primary) hypertension
CPT/HCPCS: 93242; 93306

== ENCOUNTER → 2024-10-16 13:06 | Outpatient (BNV) | payer OTHER, SELFPAY | PROVIDERS: Visit Provider Internal Medicine Cardiovascular Disease | DX: I10 Essential (primary) hypertension (principal) | CPT/HCPCS: 93306 ==

== ENCOUNTER 2024-10-24 07:37 | Outpatient (REF) | payer OTHER, SELFPAY ==
--- NOTE | ~2024-10-24 | CT_ITS ---
CLINICAL HISTORY: Neck pain, cervical radiculopathy, worsening GRAFF (head CT normal) CT CERVICAL SPINE WITHOUT CONTRAST Comparison: None Findings: Posterior fusion C3-7. Mild reversal of the normal lordosis. Satisfactory vertebral body alignment. [id number] multilevel disc space narrowing. Multilevel facet arthropathy. No large disc herniation or significant spinal stenosis. No acute fractures or dislocations. No acute findings on limited view of the intracranial contents. Soft tissues of the neck are unremarkable. Lung apices are clear. IMPRESSION: 1. No acute fracture in the cervical spine. 2. Postsurgical changes with no visible complications. 3. No visible disc herniation or spinal stenosis. This document has been electronically signed by: Tamanna Sherman DO on 10/24/2024 13:46:42
== END 2024-10-24 07:38 | disposition home or self-care (01) ==
LOC: HO.CT 07:37
PROVIDERS: PCP Nurse Practitioner Primary Care; Visit Provider Nurse Practitioner Primary Care
DX: R51.9 Headache, unspecified (principal)
CPT/HCPCS: 72125

== ENCOUNTER → 2024-10-24 07:38 | Outpatient (BNV) | payer OTHER, SELFPAY | PROVIDERS: PCP Nurse Practitioner Primary Care; Visit Provider Radiology Diagnostic Radiology | DX: M54.12 Radiculopathy, cervical region (principal); R51.9 Headache, unspecified | CPT/HCPCS: 72125 ==

== ENCOUNTER 2024-11-12 08:27 | Outpatient (REF) | payer OTHER, SELFPAY ==
[2024-11-14 18:03] LABS: HIV RNA PCR Qn Copies 169 copies/mL (NOT DETECTED); HIV RNA PCR Qn Log Copies 2.23 (NOT DETECTED)
== END 2024-11-12 08:28 | disposition home or self-care (01) ==
LOC: HO.HHCL 08:27
PROVIDERS: PCP Nurse Practitioner Primary Care; Visit Provider Nurse Practitioner Primary Care
DX: Z21 Asymptomatic human immunodeficiency virus [HIV] infection status (principal)
CPT/HCPCS: 36415; 87536

== ENCOUNTER 2024-12-11 15:16 | Outpatient (REF) | payer OTHER, SELFPAY ==
[2024-12-11 16:12] LABS: MANUAL DIFF FLAG NO
[2024-12-11 16:24] LABS: Hematocrit 41.6 % (42.0-52.0); Hemoglobin 14.0 g/dl (14.0-18.0); Imm Gran Abs Auto 0.05 X10*3/uL (0.00-0.03); Imm Gran Pct Auto 0.8 % (0.0-0.4); Lymphocytes Absolute Auto 2.2 X10*3/uL (1.2-4.9); Mean Corpuscular HGB Conc 33.7 g/dl (31.0-36.0); Mean Corpuscular Hemoglobin 31.5 pg (27.0-33.0); Mean Corpuscular Volume 93.7 fL (80.0-98.0); NRBC Abs Auto 0.000 X10*3/uL (0.0-0.012); NRBC Pct Auto 0.0 /100WBC (0.0-0.2); Platelet Count 301 X10*3/uL (160-400); Red Blood Count 4.44 X10*6/uL (4.60-5.80); White Blood Count 6.6 X10*3/uL (4.8-10.8)
[2024-12-11 16:53] LABS: Alanine Aminotransferase 49 U/L (0-40); Albumin Level 4.3 g/dL (3.5-5.0); Alkaline Phosphatase 91 U/L (39-117); Anion Gap 11 (12-20); Aspartate Amino Transferase 51 U/L (5-37); Blood Urea Nitrogen 19 mg/dL (9-16); Calcium 9.4 mg/dL (8.4-10.2); Carbon Dioxide 31 mmol/L (22-29); Chloride 104 mmol/L (96-108); Estimated Glomerular Filt Rate > 60; Potassium 4.3 mmol/L (3.3-5.1); Sodium 142 mmol/L (135-145); Total Protein 6.8 g/dL (6.5-8.0)
[2024-12-12 08:16] LABS: ~HepC Num1 0.08 S/CO (0.00-0.79); ~Hepatitis C Antibody Nonreactive (Nonreactive)
[2024-12-12 22:33] LABS: HIV RNA PCR Qn Copies 39 copies/mL (NOT DETECTED); HIV RNA PCR Qn Log Copies 1.59 (NOT DETECTED)
[2024-12-13 13:13] LABS: Rapid Plasma Reagin Ab Titer 1:4
[2024-12-14 05:38] LABS: TS Negative Control Passed; TS Panel A 1; TS Panel B 0; TS Positive Control Passed; TSpotTB Negative (Negative)
[2024-12-15 17:24] LABS: Absolute CD3 Count 1442 cells/uL (840-3060); Absolute CD8 Count 453 cells/uL (180-1170); Percent CD3 Cells 62 % (57-85); Percent CD8 Cells 19 % (12-42)
== END 2024-12-11 15:17 | disposition home or self-care (01) ==
LOC: HO.HHCL 15:16
PROVIDERS: PCP Nurse Practitioner Primary Care; Visit Provider Internal Medicine
DX: Z21 Asymptomatic human immunodeficiency virus [HIV] infection status (principal); Z11.59 Encounter for screening for other viral diseases; Z11.3 Encounter for screening for infections with a predominantly sexual mode of transmission; Z11.1 Encounter for screening for respiratory tuberculosis
CPT/HCPCS: 36415; 80053; 82550; 85025; 86359; 86360; 86481; 86592; 86593; 86803; 87536

== ENCOUNTER 2024-12-15 09:44 | Outpatient (REF) | payer OTHER, SELFPAY ==
--- NOTE | ~2024-12-15 | MR_ITS ---
EXAMINATION: MR BRAIN WITHOUT CONTRAST CLINICAL INFORMATION: Persistent headache. COMPARISON: Correlated to CT dated July 26, 2024. TECHNIQUE: MRI of the brain was obtained using routine sequences without contrast. FINDINGS: No restricted diffusion. No acute intracranial hemorrhage, mass effect, midline shift, hydrocephalus or herniation. Norman-white matter differentiation is normal. Posterior cranial fossa contents demonstrate no signal abnormality or gross mass effect. Normal position of the cerebellar tonsils. Sellar/suprasellar region demonstrates no signal abnormality or gross masses. Questionable 2 mm intrinsic hyperintense T1 signal in the mid sella turcica/pituitary gland. Flow-void signal within the main cerebral vessels is normal. MR/MR head/brain wo con IMPRESSION: No acute or structural brain abnormality. Questionable 2 mm Rathke cyst. Electronically signed by: Luis Peters MD 12/17/2024 07:23 AM EDT
== END 2024-12-15 09:45 | disposition home or self-care (01) ==
LOC: HO.MRI 09:44
PROVIDERS: PCP Nurse Practitioner Primary Care; Visit Provider Internal Medicine
DX: R51.9 Headache, unspecified (principal)
CPT/HCPCS: 70551

== ENCOUNTER → 2024-12-15 09:44 | Outpatient (BNV) | payer OTHER, SELFPAY | PROVIDERS: PCP Nurse Practitioner Primary Care; Visit Provider Radiology Diagnostic Radiology | DX: R51.9 Headache, unspecified (principal) | CPT/HCPCS: 70551 ==

== ENCOUNTER 2025-01-14 10:03 | Outpatient (REF) | payer OTHER, SELFPAY ==
[2025-01-14 11:09] LABS: MANUAL DIFF FLAG NO
[2025-01-14 11:12] LABS: Hematocrit 39.6 % (42.0-52.0); Hemoglobin 13.4 g/dl (14.0-18.0); Imm Gran Abs Auto 0.03 X10*3/uL (0.00-0.03); Imm Gran Pct Auto 0.5 % (0.0-0.4); Lymphocytes Absolute Auto 2.1 X10*3/uL (1.2-4.9); Mean Corpuscular HGB Conc 33.8 g/dl (31.0-36.0); Mean Corpuscular Hemoglobin 31.3 pg (27.0-33.0); Mean Corpuscular Volume 92.5 fL (80.0-98.0); NRBC Abs Auto 0.000 X10*3/uL (0.0-0.012); NRBC Pct Auto 0.0 /100WBC (0.0-0.2); Platelet Count 308 X10*3/uL (160-400); Red Blood Count 4.28 X10*6/uL (4.60-5.80); White Blood Count 5.8 X10*3/uL (4.8-10.8)
[2025-01-14 11:51] LABS: Alanine Aminotransferase 43 U/L (0-40); Albumin Level 4.4 g/dL (3.5-5.0); Alkaline Phosphatase 84 U/L (39-117); Anion Gap 10 (12-20); Aspartate Amino Transferase 37 U/L (5-37); Blood Urea Nitrogen 17 mg/dL (9-16); Calcium 9.2 mg/dL (8.4-10.2); Carbon Dioxide 27 mmol/L (22-29); Chloride 106 mmol/L (96-108); Estimated Glomerular Filt Rate > 60; Potassium 4.4 mmol/L (3.3-5.1); Sodium 139 mmol/L (135-145); Total Protein 6.8 g/dL (6.5-8.0)
[2025-01-16 14:33] LABS: HIV RNA PCR Qn Copies 192 copies/mL (NOT DETECTED); HIV RNA PCR Qn Log Copies 2.28 (NOT DETECTED)
== END 2025-01-14 10:04 | disposition home or self-care (01) ==
LOC: HO.HHCL 10:03
PROVIDERS: PCP Nurse Practitioner Primary Care; Visit Provider Internal Medicine
DX: Z21 Asymptomatic human immunodeficiency virus [HIV] infection status (principal)
CPT/HCPCS: 36415; 80053; 82550; 85025; 87536

== ENCOUNTER 2025-02-12 10:01 | Outpatient (REF) | payer OTHER, SELFPAY ==
[2025-02-12 11:35] LABS: MANUAL DIFF FLAG NO
[2025-02-12 11:54] LABS: Hematocrit 42.0 % (42.0-52.0); Hemoglobin 13.9 g/dl (14.0-18.0); Imm Gran Abs Auto 0.03 X10*3/uL (0.00-0.03); Imm Gran Pct Auto 0.5 % (0.0-0.4); Lymphocytes Absolute Auto 2.4 X10*3/uL (1.2-4.9); Mean Corpuscular HGB Conc 33.1 g/dl (31.0-36.0); Mean Corpuscular Hemoglobin 30.7 pg (27.0-33.0); Mean Corpuscular Volume 92.7 fL (80.0-98.0); NRBC Abs Auto 0.000 X10*3/uL (0.0-0.012); NRBC Pct Auto 0.0 /100WBC (0.0-0.2); Platelet Count 301 X10*3/uL (160-400); Red Blood Count 4.53 X10*6/uL (4.60-5.80); White Blood Count 5.5 X10*3/uL (4.8-10.8)
[2025-02-12 13:33] LABS: Alanine Aminotransferase 46 U/L (0-40); Albumin Level 4.5 g/dL (3.5-5.0); Alkaline Phosphatase 88 U/L (39-117); Anion Gap 10 (12-20); Aspartate Amino Transferase 39 U/L (5-37); Blood Urea Nitrogen 15 mg/dL (9-16); Calcium 9.5 mg/dL (8.4-10.2); Carbon Dioxide 30 mmol/L (22-29); Chloride 106 mmol/L (96-108); Estimated Glomerular Filt Rate > 60; Potassium 4.8 mmol/L (3.3-5.1); Sodium 141 mmol/L (135-145); Total Protein 7.1 g/dL (6.5-8.0)
[2025-02-13 15:58] LABS: HIV RNA PCR Qn Copies 202 copies/mL (NOT DETECTED); HIV RNA PCR Qn Log Copies 2.31 (NOT DETECTED)
[2025-02-19 12:42] LABS: Absolute CD3 Count 1713 cells/uL (840-3060); Absolute CD8 Count 497 cells/uL (180-1170); Percent CD3 Cells 63 % (57-85); Percent CD8 Cells 18 % (12-42)
== END 2025-02-12 10:02 | disposition home or self-care (01) ==
LOC: HO.HHCL 10:01
PROVIDERS: PCP Nurse Practitioner Primary Care; Visit Provider Internal Medicine
DX: Z21 Asymptomatic human immunodeficiency virus [HIV] infection status (principal)
CPT/HCPCS: 36415; 80053; 82550; 85025; 86359; 86360; 87536